=== PATIENT | male | born 1965 | race African-American/Black ===

== ENCOUNTER 2017-04-01 10:55 | Emergency (ER) | payer MEDICAID, OTHER ==
[~2017-04-01] VITALS: Ht 180.3 cm; Wt 69.0 kg
[~2017-04-01 10:55] MED LIST: AMLO2.5T45 PO; GLIP10TA10 PO; LEVVL SUBCUT; LISI-604 PO; PREG75CA PO; Potassium Chloride PO; [UNRECOGNIZED DRUG - OTHER] PO
[2017-04-01 12:08] LABS: BASOPHILS % 0.3 % (0.0-2.0); EOSINOPHILS % 1.1 % (0.0-5.0); HEMATOCRIT. 22.4 % (42.0-52.0); HEMOGLOBIN. 7.5 g/dL (14.0-18.0); MEAN CORPUSCULAR HEMOGLOBIN 29.1 pg (28.0-32.0); MEAN CORPUSCULAR VOLUME 87.1 fL (80.0-94.0); MEAN PLATELET VOLUME 8.2 fl (7.4-10.4); NEUTROPHILS % 75.6 % (40.0-76.0); PLATELET 245 x1000/uL (130-400); RED BLOOD CELL COUNT 2.57 mill/uL (4.7-6.1); RED CELL DISTRIBUTION WIDTH 14.7 % (11.6-14.6)
[2017-04-01 12:17] LABS: INR 1.1; PARTIAL THROMBOPLASTIN TIME 33.1 sec (23.4-31.0); PROTHROMBIN TIME 11.9 sec (9.4-11.6)
[2017-04-01 12:24] LABS: CARBON DIOXIDE 23 mEq/L (21-32); CHLORIDE 109 mEq/L (98-107)
[2017-04-01 16:41] VITALS: BP 132/83
== END 2017-04-01 16:51 | disposition home or self-care (01) ==
LOC: ER 13:41
DX: D64.9 Anemia, unspecified (principal); B19.20 Unspecified viral hepatitis C without hepatic coma; I10 Essential (primary) hypertension; E11.9 Type 2 diabetes mellitus without complications; K58.9 Irritable bowel syndrome, unspecified; Z79.4 Long term (current) use of insulin
CPT/HCPCS: 36415; 80053; 83690; 85025; 85610; 85730; 86850; 86900; 86901; 99284; Z7610

== ENCOUNTER 2017-04-08 08:02 | Inpatient (IN) | payer OTHER ==
[~2017-04-08] VITALS: Ht 180.3 cm; Wt 81.6 kg
[2017-04-08 09:48] LABS: HEMATOCRIT. 22.9 % (42.0-52.0); HEMOGLOBIN. 7.6 g/dL (14.0-18.0); MEAN CORPUSCULAR HEMOGLOBIN 28.5 pg (28.0-32.0); MEAN CORPUSCULAR VOLUME 85.6 fL (80.0-94.0); MEAN PLATELET VOLUME 7.3 fl (7.4-10.4); PLATELET 389 x1000/uL (130-400); RED BLOOD CELL COUNT 2.67 mill/uL (4.7-6.1); RED CELL DISTRIBUTION WIDTH 14.6 % (11.6-14.6)
[2017-04-08 10:00] LABS: CARBON DIOXIDE 25 mEq/L (21-32); CHLORIDE 103 mEq/L (98-107)
[2017-04-08 10:02] LABS: PLATELET ESTIMATE NORMAL; TROPONIN I < 0.02 ng/mL (0.00-0.04)
[2017-04-08] MEDS ORDERED: IOHEXOL-350 100 ML BOTTLE ONE (12:02)
[2017-04-08] MEDS ORDERED: SODIUM CHLORIDE 0.9% 10ML VIAL ONE (12:02)
[2017-04-08 20:00] VITALS: BP 159/96
[2017-04-08] MEDS ORDERED: POTASSIUM CHLORIDE 20MEQ TABLET SR PO NR (21:15)
[2017-04-08] MEDS ORDERED: DEXTROSE 50% WATER 50ML SYRINGE IV PRN ×2 (21:15)
[2017-04-09] VITALS (14 sets, daily range): BP systolic 106–169; BP diastolic 70–99
[2017-04-09] MEDS: INSULIN DETEMIR UD 100 UNITS/ML SYR SUBCUT SCH ×2 (00:49→22:21)
[2017-04-09] MEDS: INSULIN LISPRO 100 UNITS/ML SUBCUT SCH ×4 (07:50→20:22)
[2017-04-09] MEDS: BLOOD SUGAR DIAGNOSTIC STRIP TEST SCH ×4 (07:50→20:22)
[2017-04-09] MEDS ORDERED: VANCOMYCIN 1 G PREMIX 200 ML IV SCH (13:00)
[2017-04-09] MEDS ORDERED: ONDANSETRON HCL 4MG/2ML VIAL IV PRN (13:15)
[2017-04-09] MEDS ORDERED: CLONIDINE 0.1MG TABLET PO PRN (13:15)
[2017-04-09] MEDS: PANTOPRAZOLE SODIUM 40 MG/VIAL IV SCH (13:32)
[2017-04-09 13:38] LABS: BASOPHILS % 0.2 % (0.0-2.0); EOSINOPHILS % 0.3 % (0.0-5.0); HEMATOCRIT. 30.2 % (42.0-52.0); HEMOGLOBIN. 10.2 g/dL (14.0-18.0); LYMPHOCYTES % 10.5 % (20.0-50.0); MEAN CORPUSCULAR HEMOGLOBIN 28.5 pg (28.0-32.0); MEAN CORPUSCULAR VOLUME 84.3 fL (80.0-94.0); MONOCYTES % 6.1 % (2.0-8.0); NEUTROPHILS % 82.9 % (40.0-76.0); PLATELET 406 x1000/uL (130-400); RED BLOOD CELL COUNT 3.58 mill/uL (4.7-6.1); RED CELL DISTRIBUTION WIDTH 14.5 % (11.6-14.6)
[2017-04-09 14:08] LABS: CARBON DIOXIDE 26 mEq/L (21-32); CHLORIDE 104 mEq/L (98-107); TOTAL IRON BINDING CAPACITY 151 ug/dL (250-450)
[2017-04-09 14:29] LABS: FOLIC ACID (FOLATE) SERUM 8.4 ng/mL (>5.38)
[2017-04-09] MEDS ORDERED: VANCOMYCIN 1250MG in DEXTROSE 5% WATER 250ML IV SCH (15:00)
[2017-04-09] MEDS ORDERED: POTASSIUM CHLORIDE 20MEQ TABLET SR PO SCH (15:00)
[2017-04-09 16:32] LABS: BASOPHILS % 0.4 % (0.0-2.0); EOSINOPHILS % 0.3 % (0.0-5.0); HEMATOCRIT. 31.2 % (42.0-52.0); HEMOGLOBIN. 10.4 g/dL (14.0-18.0); LYMPHOCYTES % 10.4 % (20.0-50.0); MEAN CORPUSCULAR VOLUME 84.2 fL (80.0-94.0); MEAN PLATELET VOLUME 7.4 fl (7.4-10.4); MONOCYTES % 6.5 % (2.0-8.0); NEUTROPHILS % 82.4 % (40.0-76.0); PLATELET 423 x1000/uL (130-400); RED BLOOD CELL COUNT 3.71 mill/uL (4.7-6.1); RED CELL DISTRIBUTION WIDTH 14.4 % (11.6-14.6)
[2017-04-09] MEDS: METOCLOPRAMIDE HCL 5MG TABLET PO SCH (17:42)
[2017-04-09] MEDS: AMLODIPINE 2.5MG TABLET PO SCH (20:39)
[2017-04-10] VITALS: BP 145/84
[2017-04-10] MEDS: METOCLOPRAMIDE HCL 5MG TABLET PO SCH ×4 (00:36→17:43)
[2017-04-10] MEDS ORDERED: VANCOMYCIN 750 MG PREMIX 150 ML IV SCH (03:00)
[2017-04-10 04:00] VITALS: BP 131/79
[2017-04-10] MEDS: HYDROCODONE/ACETAMINOPHEN 5/325MG TABLET PO PRN ×2 (05:58→12:02)
[2017-04-10] MEDS: BLOOD SUGAR DIAGNOSTIC STRIP TEST SCH ×4 (06:42→21:28)
[2017-04-10] MEDS: INSULIN LISPRO 100 UNITS/ML SUBCUT SCH ×4 (07:50→21:00)
[2017-04-10 08:00] VITALS: BP 136/79
[2017-04-10] MEDS: PANTOPRAZOLE SODIUM 40 MG/VIAL IV SCH (09:18)
[2017-04-10] MEDS: AMLODIPINE 2.5MG TABLET PO SCH ×2 (09:18→21:28)
[2017-04-10 12:00] VITALS: BP 153/90
[2017-04-10 16:00] VITALS: BP 140/80
[2017-04-10 17:05] LABS: CLARITY URINE CLOUDY (CLEAR); COLOR URINE YELLOW (YELLOW); GLUCOSE URINE NEGATIVE (NEGATIVE); KETONES URINE NEGATIVE (NEGATIVE); LEUKOCYTE ESTERASE URINE NEGATIVE (NEGATIVE); NITRITE URINE NEGATIVE (NEGATIVE); OCCULT BLOOD URINE 2+ (NEGATIVE); PH URINE 5.5 (4.5-8.0); PROTEIN URINE 3+ (NEGATIVE); SPECIFIC GRAVITY URINE 1.026 (1.005-1.030); UROBILINOGEN URINE 0.2 E.U./dL (0.2-1.0)
[2017-04-10] MEDS: VANCOMYCIN 1250MG in DEXTROSE 5% WATER 250ML IV SCH (17:43)
[2017-04-10 20:00] VITALS: BP 169/103
[2017-04-11] VITALS: BP 156/80
[2017-04-11] MEDS: METOCLOPRAMIDE HCL 5MG TABLET PO SCH ×4 (00:54→18:53)
[2017-04-11] MEDS: INSULIN DETEMIR UD 100 UNITS/ML SYR SUBCUT SCH ×2 (01:00→21:57)
[2017-04-11] MEDS: VANCOMYCIN 1250MG in DEXTROSE 5% WATER 250ML IV SCH ×2 (03:38→16:35)
[2017-04-11 04:00] VITALS: BP 142/90
[2017-04-11] MEDS: BLOOD SUGAR DIAGNOSTIC STRIP TEST SCH ×4 (07:20→20:20)
[2017-04-11] MEDS: INSULIN LISPRO 100 UNITS/ML SUBCUT SCH ×4 (07:50→21:57)
[2017-04-11 08:00] VITALS: BP 132/82
[2017-04-11] MEDS: AMLODIPINE 2.5MG TABLET PO SCH ×2 (09:24→20:20)
[2017-04-11] MEDS: PANTOPRAZOLE SODIUM 40 MG/VIAL IV SCH (09:24)
[2017-04-11] MEDS: CARVEDILOL 6.25 MG TABLET PO SCH ×2 (09:24→20:20)
[2017-04-11 12:00] VITALS: BP 133/80
[2017-04-11 14:53] LABS: HEMOGLOBIN 11.8 g/dL (14.0-18.0); MEAN CORPUSCULAR HEMOGLOBIN 28.7 pg (28.0-32.0); MEAN CORPUSCULAR VOLUME 85.1 fL (80.0-94.0); PLATELET 469 x1000/uL (130-400); RED BLOOD CELL COUNT 4.11 mill/uL (4.7-6.1); RED CELL DISTRIBUTION WIDTH 14.2 % (11.6-14.6)
[2017-04-11 16:00] VITALS: BP 114/68
[2017-04-11 20:00] VITALS: BP 115/74
[2017-04-12] VITALS: BP 134/82
[2017-04-12] MEDS: VANCOMYCIN 1250MG in DEXTROSE 5% WATER 250ML IV SCH (02:53)
[2017-04-12] MEDS: METOCLOPRAMIDE HCL 5MG TABLET PO SCH ×4 (02:53→18:00)
[2017-04-12] MEDS: HYDROCODONE/ACETAMINOPHEN 5/325MG TABLET PO PRN (03:13)
[2017-04-12 04:00] VITALS: BP 100/65
[2017-04-12 07:30] LABS: CARBON DIOXIDE 21 mEq/L (21-32); CHLORIDE 103 mEq/L (98-107)
[2017-04-12] MEDS: INSULIN LISPRO 100 UNITS/ML SUBCUT SCH ×3 (07:50→18:22)
[2017-04-12] MEDS: BLOOD SUGAR DIAGNOSTIC STRIP TEST SCH ×3 (07:54→17:57)
[2017-04-12 08:00] VITALS: BP 119/77
[2017-04-12] MEDS: CARVEDILOL 6.25 MG TABLET PO SCH (09:00)
[2017-04-12] MEDS: AMLODIPINE 2.5MG TABLET PO SCH (09:00)
[2017-04-12] MEDS: PANTOPRAZOLE SODIUM 40 MG/VIAL IV SCH (09:00)
[2017-04-12 09:09] LABS: HEMATOCRIT 30.7 % (42.0-52.0); HEMOGLOBIN 10.2 g/dL (14.0-18.0); MEAN CORPUSCULAR HEMOGLOBIN 28.3 pg (28.0-32.0); MEAN CORPUSCULAR VOLUME 85.6 fL (80.0-94.0); PLATELET 387 x1000/uL (130-400); RED BLOOD CELL COUNT 3.59 mill/uL (4.7-6.1); RED CELL DISTRIBUTION WIDTH 14.2 % (11.6-14.6)
[2017-04-12 12:00] VITALS: BP 135/90
[2017-04-12 16:00] VITALS: BP 123/79
[2017-04-12 17:46] VITALS: BP 123/79
[2017-04-13] MEDS ORDERED: VANCOMYCIN 1 G PREMIX 200 ML IV SCH (08:00)
== END 2017-04-12 18:30 | disposition home health service (06) | DRG 720 ==
LOC: ER 08:32 → 6EST 14:17 → ENRESERV 16:06
PROVIDERS: ADMIT Internal Medicine; ATTEND Internal Medicine
PROC: 30233N1 Transfusion of Nonautologous Red Blood Cells into Peripheral Vein, Percutaneous Approach (ICD-10-PCS; principal; 2017-04-09)
PROC: 02HV33Z Insertion of Infusion Device into Superior Vena Cava, Percutaneous Approach (ICD-10-PCS; 2017-04-12)
PROC: B5181ZA Fluoroscopy of Superior Vena Cava using Low Osmolar Contrast, Guidance (ICD-10-PCS; 2017-04-12)
PROC: B548ZZA Ultrasonography of Superior Vena Cava, Guidance (ICD-10-PCS; 2017-04-12)
DX: A41.9 Sepsis, unspecified organism (principal); N17.0 Acute kidney failure with tubular necrosis; E43 Unspecified severe protein-calorie malnutrition; I42.9 Cardiomyopathy, unspecified; E11.42 Type 2 diabetes mellitus with diabetic polyneuropathy; I50.9 Heart failure, unspecified; I11.0 Hypertensive heart disease with heart failure; E88.09 Other disorders of plasma-protein metabolism, not elsewhere classified; K31.84 Gastroparesis; E11.51 Type 2 diabetes mellitus with diabetic peripheral angiopathy without gangrene; E87.6 Hypokalemia; E11.621 Type 2 diabetes mellitus with foot ulcer; L97.529 Non-pressure chronic ulcer of other part of left foot with unspecified severity; D47.3 Essential (hemorrhagic) thrombocythemia; D63.8 Anemia in other chronic diseases classified elsewhere; E11.69 Type 2 diabetes mellitus with other specified complication; D50.9 Iron deficiency anemia, unspecified; M86.8X7 Other osteomyelitis, ankle and foot; K21.9 Gastro-esophageal reflux disease without esophagitis; B18.2 Chronic viral hepatitis C; E11.43 Type 2 diabetes mellitus with diabetic autonomic (poly)neuropathy; E78.00 Pure hypercholesterolemia, unspecified; E78.5 Hyperlipidemia, unspecified; W19.XXXA Unspecified fall, initial encounter; K59.1 Functional diarrhea; Y93.89 Activity, other specified; Y92.098 Other place in other non-institutional residence as the place of occurrence of the external cause; Y99.8 Other external cause status; Z79.4 Long term (current) use of insulin; Z87.442 Personal history of urinary calculi; Z89.421 Acquired absence of other right toe(s); Z90.49 Acquired absence of other specified parts of digestive tract; Z79.899 Other long term (current) drug therapy; Z91.19 Patient's noncompliance with other medical treatment and regimen; Z86.19 Personal history of other infectious and parasitic diseases
CPT/HCPCS: 36415; 36569; 70551; 71275; 73721; 76937; 77001; 80048; 80053; 80202; 81001; 82270; 82607; 82728; 82746; 82962; 83036; 83540; 83550; 84484; 85025; 85027; 86850; 86900; 86920; 93005; 97022; 97162; 99285; A4216; C1725; C9113; J1815; J2405; J3370; J7040; J7060; J8597; P9016; Q9967

== ENCOUNTER 2017-04-21 12:51 | Inpatient (IN) | payer OTHER ==
[~2017-04-21] VITALS: Ht 180.3 cm; Wt 68.0 kg
[2017-04-21 16:04] LABS: CHLORIDE 106 mEq/L (98-107); INR 1.2; PROTHROMBIN TIME 12.4 sec (9.4-11.6)
[2017-04-21 16:05] LABS: BASOPHILS % 0.2 % (0.0-2.0); EOSINOPHILS % 0.2 % (0.0-5.0); HEMATOCRIT. 26.4 % (42.0-52.0); HEMOGLOBIN. 8.6 g/dL (14.0-18.0); LYMPHOCYTES % 7.3 % (20.0-50.0); MEAN CORPUSCULAR VOLUME 86.3 fL (80.0-94.0); MEAN PLATELET VOLUME 7.6 fl (7.4-10.4); MONOCYTES % 3.9 % (2.0-8.0); NEUTROPHILS % 88.4 % (40.0-76.0); PLATELET 281 x1000/uL (130-400); RED BLOOD CELL COUNT 3.06 mill/uL (4.7-6.1); RED CELL DISTRIBUTION WIDTH 14.3 % (11.6-14.6)
[2017-04-21 16:12] LABS: CARBON DIOXIDE 19 mEq/L (21-32)
[2017-04-21] MEDS ORDERED: SODIUM CHLORIDE 0.9% 1,000 ML IV ONE (19:45)
[2017-04-21] MEDS ORDERED: ACETAMINOPHEN 650MG/20.3ML UDC PO ONE (19:45)
[2017-04-21 23:40] VITALS: BP 127/71
[2017-04-22] VITALS: BP 127/71
[2017-04-22] MEDS ORDERED: SODIUM CHLORIDE 0.9% 1,000 ML IV SCH (00:45)
[2017-04-22] MEDS ORDERED: DEXTROSE 50% WATER 50ML SYRINGE IV PRN (02:45)
[2017-04-22 04:00] VITALS: BP 109/64
[2017-04-22] MEDS: SODIUM CHLORIDE 0.9% 1,000 ML IV SCH ×2 (04:26→16:25)
[2017-04-22] MEDS: MORPHINE SULFATE 4 MG/ML CPJ (NOT FOR IM USE) IV PRN ×3 (04:27→21:49)
[2017-04-22] MEDS: BLOOD SUGAR DIAGNOSTIC STRIP TEST SCH ×4 (06:32→21:11)
[2017-04-22] MEDS: INSULIN LISPRO 100 UNITS/ML SUBCUT SCH ×4 (06:32→21:00)
[2017-04-22 07:15] LABS: BASOPHILS % 0.4 % (0.0-2.0); EOSINOPHILS % 1.4 % (0.0-5.0); HEMATOCRIT. 25.5 % (42.0-52.0); HEMOGLOBIN. 8.4 g/dL (14.0-18.0); LYMPHOCYTES % 13.9 % (20.0-50.0); MEAN CORPUSCULAR HEMOGLOBIN 28.2 pg (28.0-32.0); MEAN CORPUSCULAR VOLUME 85.6 fL (80.0-94.0); MEAN PLATELET VOLUME 7.5 fl (7.4-10.4); MONOCYTES % 5.1 % (2.0-8.0); NEUTROPHILS % 79.2 % (40.0-76.0); PLATELET 248 x1000/uL (130-400); RED BLOOD CELL COUNT 2.99 mill/uL (4.7-6.1); RED CELL DISTRIBUTION WIDTH 14.1 % (11.6-14.6)
[2017-04-22 08:42] VITALS: BP 115/78
[2017-04-22] MEDS: AMLODIPINE 5MG TABLET PO SCH (08:45)
[2017-04-22 12:02] LABS: CARBON DIOXIDE 20 mEq/L (21-32); CHLORIDE 111 mEq/L (98-107)
[2017-04-22 20:00] VITALS: BP 108/66
[2017-04-22] MEDS ORDERED: VANCOMYCIN 1250MG in DEXTROSE 5% WATER 250ML IV SCH (20:30)
[2017-04-22 23:12] VITALS: BP 128/71
[2017-04-22 23:27] VITALS: BP 147/87
[2017-04-23] VITALS (8 sets, daily range): BP systolic 103–154; BP diastolic 54–89
[2017-04-23] MEDS: BLOOD SUGAR DIAGNOSTIC STRIP TEST SCH ×4 (06:35→22:08)
[2017-04-23] MEDS ORDERED: LIDOCAINE HCL 1% 20ML VIAL (Pyxis) INJ ONE (07:36)
[2017-04-23] MEDS ORDERED: SODIUM BICARBONATE 4% (2.4MEQ) 5ML VIAL IV ONE (07:36)
[2017-04-23 08:02] LABS: BASOPHILS % 0.4 % (0.0-2.0); EOSINOPHILS % 1.1 % (0.0-5.0); HEMATOCRIT. 28.7 % (42.0-52.0); HEMOGLOBIN. 9.8 g/dL (14.0-18.0); LYMPHOCYTES % 12.5 % (20.0-50.0); MEAN CORPUSCULAR HEMOGLOBIN 29.2 pg (28.0-32.0); MEAN CORPUSCULAR VOLUME 85.4 fL (80.0-94.0); MEAN PLATELET VOLUME 7.5 fl (7.4-10.4); MONOCYTES % 5.5 % (2.0-8.0); NEUTROPHILS % 80.5 % (40.0-76.0); PLATELET 292 x1000/uL (130-400); RED BLOOD CELL COUNT 3.36 mill/uL (4.7-6.1); RED CELL DISTRIBUTION WIDTH 13.9 % (11.6-14.6)
[2017-04-23] MEDS ORDERED: HEPARIN 100 UNITS/1 ML VIAL IVF PRN (08:45)
[2017-04-23] MEDS: AMLODIPINE 5MG TABLET PO SCH (09:48)
[2017-04-23] MEDS: INSULIN LISPRO 100 UNITS/ML SUBCUT SCH ×4 (09:49→22:23)
[2017-04-23] MEDS: SODIUM CHLORIDE 0.9% 1,000 ML IV SCH ×3 (10:15→20:15)
[2017-04-23] MEDS: MORPHINE SULFATE 4 MG/ML CPJ (NOT FOR IM USE) IV PRN (10:25)
[2017-04-23] MEDS ORDERED: VANCOMYCIN 1 G PREMIX 200 ML IV SCH (12:00)
[2017-04-23 14:48] LABS: CARBON DIOXIDE 19 mEq/L (21-32); CHLORIDE 111 mEq/L (98-107)
[2017-04-23] MEDS: VANCOMYCIN 1250MG in DEXTROSE 5% WATER 250ML IV SCH (16:31)
[2017-04-24] VITALS: BP 134/82
[2017-04-24 04:00] VITALS: BP 148/60
[2017-04-24] MEDS: SODIUM CHLORIDE 0.9% 1,000 ML IV SCH ×2 (06:01→16:15)
[2017-04-24] MEDS: BLOOD SUGAR DIAGNOSTIC STRIP TEST SCH ×3 (07:10→16:44)
[2017-04-24] MEDS: INSULIN LISPRO 100 UNITS/ML SUBCUT SCH ×3 (07:50→17:31)
[2017-04-24 08:00] VITALS: BP 131/82
[2017-04-24] MEDS: AMLODIPINE 5MG TABLET PO SCH (10:34)
[2017-04-24] MEDS: MORPHINE SULFATE 4 MG/ML CPJ (NOT FOR IM USE) IV PRN (11:55)
[2017-04-24 12:00] VITALS: BP 138/88
[2017-04-24 13:07] LABS: *AMPHETAMINES SCREEN URINE NEGATIVE (NEGATIVE); *BARBITURATES SCREEN URINE NEGATIVE (NEGATIVE); *BENZODIAZEPINES SCREEN URINE NEGATIVE (NEGATIVE); *COCAINE SCREEN URINE NEGATIVE (NEGATIVE); CANNABINOID URINE SCREEN NEGATIVE (NEGATIVE); METHADONE URINE SCREEN NEGATIVE (NEGATIVE); OPIATES URINE SCREEN PRESUMTIVE POSITIVE (NEGATIVE); PHENCYCLIDINE URINE SCREEN NEGATIVE (NEGATIVE)
[2017-04-24 16:00] VITALS: BP 145/93
[2017-04-24] MEDS: VANCOMYCIN 1250MG in DEXTROSE 5% WATER 250ML IV SCH (16:44)
[2017-04-24 17:28] VITALS: BP 145/93
== END 2017-04-24 17:54 | disposition home health service (06) | DRG 720 ==
LOC: ER 12:51 → 6EST 19:43 → ENRESERV 20:01
PROVIDERS: ADMIT Family Medicine; ATTEND Family Medicine
PROC: 30233N1 Transfusion of Nonautologous Red Blood Cells into Peripheral Vein, Percutaneous Approach (ICD-10-PCS; 2017-04-22)
PROC: 02HV33Z Insertion of Infusion Device into Superior Vena Cava, Percutaneous Approach (ICD-10-PCS; principal; 2017-04-23)
PROC: B5181ZA Fluoroscopy of Superior Vena Cava using Low Osmolar Contrast, Guidance (ICD-10-PCS; 2017-04-23)
PROC: B548ZZA Ultrasonography of Superior Vena Cava, Guidance (ICD-10-PCS; 2017-04-23)
DX: A41.9 Sepsis, unspecified organism (principal); N17.0 Acute kidney failure with tubular necrosis; E43 Unspecified severe protein-calorie malnutrition; E11.621 Type 2 diabetes mellitus with foot ulcer; K75.9 Inflammatory liver disease, unspecified; T85.618A Breakdown (mechanical) of other specified internal prosthetic devices, implants and grafts, initial encounter; L97.529 Non-pressure chronic ulcer of other part of left foot with unspecified severity; I10 Essential (primary) hypertension; Z68.20 Body mass index [BMI] 20.0-20.9, adult; Z79.4 Long term (current) use of insulin; Z79.899 Other long term (current) drug therapy; Z90.49 Acquired absence of other specified parts of digestive tract; Z89.431 Acquired absence of right foot; Y83.9 Surgical procedure, unspecified as the cause of abnormal reaction of the patient, or of later complication, without mention of misadventure at the time of the procedure; Y92.89 Other specified places as the place of occurrence of the external cause
CPT/HCPCS: 36415; 36569; 71010; 73630; 76770; 76937; 77001; 80053; 80202; 80305; 82962; 85025; 85610; 85651; 86140; 86850; 86900; 86920; 87040; 93005; 96360; 96361; 99285; C1725; J1815; J2270; J3370; J3490; J7030; J7060; P9016

== ENCOUNTER 2017-05-18 07:18 | Inpatient (IN) | payer OTHER ==
[~2017-05-18] VITALS: Ht 182.9 cm; Wt 65.3 kg
[2017-05-18] MEDS ORDERED: SODIUM CHLORIDE 0.9% 1000ML BAG (SEPSIS BOLUS) IV ONE (08:15)
[2017-05-18] MEDS ORDERED: PIPERACILLIN/TAZ 3.375G PREMIX 50 ML IV ONE (08:15)
[2017-05-18 08:52] LABS: BASOPHILS % 0.2 % (0.0-2.0); EOSINOPHILS % 0.3 % (0.0-5.0); HEMATOCRIT. 21.9 % (42.0-52.0); HEMOGLOBIN. 7.6 g/dL (14.0-18.0); MEAN CORPUSCULAR HEMOGLOBIN 29.4 pg (28.0-32.0); MEAN CORPUSCULAR VOLUME 84.7 fL (80.0-94.0); MEAN PLATELET VOLUME 7.6 fl (7.4-10.4); MONOCYTES % 8.9 % (2.0-8.0); NEUTROPHILS % 77.6 % (40.0-76.0); PLATELET 247 x1000/uL (130-400); RED BLOOD CELL COUNT 2.58 mill/uL (4.7-6.1); RED CELL DISTRIBUTION WIDTH 14.2 % (11.6-14.6)
[2017-05-18 09:01] LABS: INR 1.2; PROTHROMBIN TIME 12.3 sec (9.4-11.6)
[2017-05-18 09:07] LABS: CARBON DIOXIDE 24 mEq/L (21-32); CHLORIDE 107 mEq/L (98-107)
[2017-05-18] MEDS ORDERED: POTASSIUM CHLORIDE 20MEQ TABLET SR PO NR (09:15)
[2017-05-18 12:00] VITALS: BP 141/88
[2017-05-18 12:30] VITALS: BP 141/88
[2017-05-18] MEDS ORDERED: ACETAMINOPHEN 325MG TABLET PO PRN (12:45)
[2017-05-18] MEDS ORDERED: VANCOMYCIN 1 G PREMIX 200 ML IV SCH (12:45)
[2017-05-18] MEDS ORDERED: IPRATROPIUM/ALBUTEROL 0.5-3(2.5)MG/3ML NEB INH PRN (12:45)
[2017-05-18] MEDS ORDERED: DEXTROSE 50% WATER 50ML SYRINGE IV PRN (12:45)
[2017-05-18] MEDS ORDERED: ONDANSETRON HCL 4MG/2ML VIAL IV PRN (12:45)
[2017-05-18] MEDS ORDERED: CLONIDINE 0.1MG TABLET PO PRN (12:45)
[2017-05-18] MEDS ORDERED: DIPHENHYDRAMINE 50MG/ML VIAL IV PRN (12:45)
[2017-05-18] MEDS ORDERED: AMLODIPINE 2.5MG TABLET PO SCH (13:00)
[2017-05-18] MEDS: HYDROCODONE/ACETAMINOPHEN 5/325MG TABLET PO PRN ×2 (13:18→17:49)
[2017-05-18] MEDS ORDERED: INSULIN DETEMIR UD 100 UNITS/ML SYR SUBCUT SCH (15:00)
[2017-05-18] MEDS: PIPERACILLIN/TAZ 3.375G PREMIX 50 ML IV SCH ×2 (15:17→22:26)
[2017-05-18 16:00] VITALS: BP 147/88
[2017-05-18] MEDS: BLOOD SUGAR DIAGNOSTIC STRIP TEST SCH ×2 (17:04→21:18)
[2017-05-18] MEDS: GLIPIZIDE 10MG TABLET PO SCH (17:46)
[2017-05-18] MEDS: PREGABALIN 75MG CAPSULE PO SCH (17:46)
[2017-05-18] MEDS: INSULIN LISPRO 100 UNITS/ML SUBCUT SCH ×2 (17:50→21:00)
[2017-05-18] MEDS: LISINOPRIL 20MG TABLET PO SCH (18:18)
[2017-05-18 20:00] VITALS: BP 115/68
[2017-05-19] VITALS (7 sets, daily range): BP systolic 65–157; BP diastolic 39–91
[2017-05-19] MEDS: HYDROCODONE/ACETAMINOPHEN 5/325MG TABLET PO PRN ×3 (05:31→20:36)
[2017-05-19] MEDS: PIPERACILLIN/TAZ 3.375G PREMIX 50 ML IV SCH (05:32)
[2017-05-19] MEDS: LISINOPRIL 20MG TABLET PO SCH ×2 (05:32→18:51)
[2017-05-19 05:44] LABS: BASOPHILS % 0.2 % (0.0-2.0); EOSINOPHILS % 0.1 % (0.0-5.0); HEMATOCRIT. 27.3 % (42.0-52.0); LYMPHOCYTES % 7.3 % (20.0-50.0); MEAN CORPUSCULAR HEMOGLOBIN 27.8 pg (28.0-32.0); MEAN PLATELET VOLUME 7.3 fl (7.4-10.4); MONOCYTES % 5.9 % (2.0-8.0); NEUTROPHILS % 86.5 % (40.0-76.0); PLATELET 263 x1000/uL (130-400); RED BLOOD CELL COUNT 3.25 mill/uL (4.7-6.1); RED CELL DISTRIBUTION WIDTH 14.3 % (11.6-14.6)
[2017-05-19] MEDS: BLOOD SUGAR DIAGNOSTIC STRIP TEST SCH ×4 (05:56→20:41)
[2017-05-19 06:15] LABS: CLARITY URINE CLEAR (CLEAR); COLOR URINE YELLOW (YELLOW); GLUCOSE URINE NEGATIVE (NEGATIVE); KETONES URINE NEGATIVE (NEGATIVE); LEUKOCYTE ESTERASE URINE NEGATIVE (NEGATIVE); NITRITE URINE NEGATIVE (NEGATIVE); OCCULT BLOOD URINE 2+ (NEGATIVE); PROTEIN URINE 2+ (NEGATIVE); UROBILINOGEN URINE 0.2 E.U./dL (0.2-1.0)
[2017-05-19 06:33] LABS: CARBON DIOXIDE 23 mEq/L (21-32); CHLORIDE 108 mEq/L (98-107); HDL CHOLESTEROL 42 mg/dL (40-59); LDL CHOLESTEROL 38 mg/dL (5-100)
[2017-05-19] MEDS: INSULIN LISPRO 100 UNITS/ML SUBCUT SCH ×4 (06:44→20:41)
[2017-05-19] MEDS: GLIPIZIDE 10MG TABLET PO SCH ×2 (07:26→16:45)
[2017-05-19] MEDS ORDERED: CEFTRIAXONE 2 G in DEXTROSE 5% WATER 50 ML IV SCH (08:00)
[2017-05-19] MEDS: PREGABALIN 75MG CAPSULE PO SCH ×2 (08:48→18:51)
[2017-05-19] MEDS ORDERED: ELUXADOLINE PO SCH (09:00)
[2017-05-19] MEDS ORDERED: AMLODIPINE 5MG TABLET PO NR (09:00)
[2017-05-19] MEDS ORDERED: POTASSIUM CHLORIDE 20MEQ TABLET SR PO NR (09:00)
[2017-05-19] MEDS ORDERED: SODIUM CHLORIDE 0.9% 1,000 ML IV SCH (09:15)
[2017-05-19] MEDS: LINEZOLID 600 MG PREMIX 300 ML IV SCH ×2 (09:33→20:36)
[2017-05-19] MEDS ORDERED: INSULIN DETEMIR UD 100 UNITS/ML SYR SUBCUT SCH (10:00)
[2017-05-19] MEDS: INSULIN DETEMIR UD 100 UNITS/ML SYR SUBCUT SCH ×2 (12:48→20:42)
[2017-05-19] MEDS ORDERED: DEXTROSE 50% WATER 50ML SYRINGE IV ONE ×2 (18:16→18:42)
[2017-05-20 00:30] VITALS: BP 95/56
[2017-05-20 00:59] VITALS: BP 95/56
[2017-05-20 04:25] VITALS: BP 120/84
[2017-05-20] MEDS: LISINOPRIL 20MG TABLET PO SCH (05:52)
[2017-05-20] MEDS: BLOOD SUGAR DIAGNOSTIC STRIP TEST SCH (06:02)
[2017-05-20] MEDS: INSULIN LISPRO 100 UNITS/ML SUBCUT SCH (06:02)
[2017-05-20 06:20] LABS: BASOPHILS % 0.4 % (0.0-2.0); EOSINOPHILS % 1.2 % (0.0-5.0); HEMATOCRIT. 23.2 % (42.0-52.0); LYMPHOCYTES % 13.5 % (20.0-50.0); MEAN CORPUSCULAR HEMOGLOBIN 28.8 pg (28.0-32.0); MEAN CORPUSCULAR VOLUME 83.9 fL (80.0-94.0); MEAN PLATELET VOLUME 7.5 fl (7.4-10.4); MONOCYTES % 6.3 % (2.0-8.0); NEUTROPHILS % 78.6 % (40.0-76.0); PLATELET 252 x1000/uL (130-400); RED BLOOD CELL COUNT 2.77 mill/uL (4.7-6.1); RED CELL DISTRIBUTION WIDTH 14.2 % (11.6-14.6)
[2017-05-20] MEDS: GLIPIZIDE 10MG TABLET PO SCH (06:33)
[2017-05-20 07:17] LABS: CHLORIDE 105 mEq/L (98-107)
[2017-05-20] MEDS ORDERED: GENTAMICIN SULF 40MG/ML 2ML VIAL ONE (07:17)
[2017-05-20] MEDS ORDERED: BACITRACIN 50,000 UNITS/VIAL ONE (07:17)
[2017-05-20] MEDS ORDERED: NORMAL SALINE 0.9% 10 ML SYR ONE (07:17)
[2017-05-20] MEDS ORDERED: BUPIVACAINE HCL/PF 0.5% (5MG/ML) 10ML ONE (07:18)
[2017-05-20] MEDS ORDERED: LIDOCAINE HCL 1% 20ML VIAL (Pyxis) INJ ONE (07:18)
[2017-05-20 07:33] LABS: CARBON DIOXIDE 22 mEq/L (21-32); PHOSPHORUS 1.6 mg/dL (2.5-4.9)
[2017-05-20] MEDS ORDERED: AMLODIPINE 10MG TABLET PO SCH (09:00)
[2017-05-23 09:08] LABS: COMPLEMENT C3 112 mg/dL (82-167)
== END 2017-05-20 07:30 | disposition short-term general hospital (02) | DRG 383 ==
LOC: ER 07:18 → 5WST 08:14 → EDBEDREQ 08:18 → EDBEDREQTM 08:18 → ENRESERV 08:41
PROVIDERS: ADMIT Internal Medicine; ATTEND Internal Medicine
DX: L03.116 Cellulitis of left lower limb (principal); N17.0 Acute kidney failure with tubular necrosis; E43 Unspecified severe protein-calorie malnutrition; K31.84 Gastroparesis; I50.9 Heart failure, unspecified; I13.0 Hypertensive heart and chronic kidney disease with heart failure and stage 1 through stage 4 chronic kidney disease, or unspecified chronic kidney disease; E11.43 Type 2 diabetes mellitus with diabetic autonomic (poly)neuropathy; E11.22 Type 2 diabetes mellitus with diabetic chronic kidney disease; M86.8X7 Other osteomyelitis, ankle and foot; D64.9 Anemia, unspecified; L02.416 Cutaneous abscess of left lower limb; N18.3 Chronic kidney disease, stage 3 (moderate); E11.621 Type 2 diabetes mellitus with foot ulcer; E11.69 Type 2 diabetes mellitus with other specified complication; E78.00 Pure hypercholesterolemia, unspecified; E78.5 Hyperlipidemia, unspecified; E87.6 Hypokalemia; K29.70 Gastritis, unspecified, without bleeding; L97.529 Non-pressure chronic ulcer of other part of left foot with unspecified severity; Z60.2 Problems related to living alone; E11.649 Type 2 diabetes mellitus with hypoglycemia without coma; Z82.49 Family history of ischemic heart disease and other diseases of the circulatory system; Z83.3 Family history of diabetes mellitus; Z89.421 Acquired absence of other right toe(s); Z90.49 Acquired absence of other specified parts of digestive tract; Z79.4 Long term (current) use of insulin; Z68.1 Body mass index [BMI] 19.9 or less, adult
CPT/HCPCS: 36415; 71010; 73721; 80048; 80053; 80061; 81001; 82270; 82570; 82962; 83036; 83605; 83735; 84100; 84156; 85025; 85610; 86160; 86850; 86900; 87040; 87070; 87077; 87086; 87186; 87205; 93005; 96365; 99291; A4216; J0696; J1580; J1815; J2020; J2543; J3490; J7030; J7050; J7060

== ENCOUNTER 2018-09-12 08:41 | Emergency (ER) | payer OTHER ==
[~2018-09-12] VITALS: Ht 175.3 cm; Wt 70.0 kg
[~2018-09-12 08:41] MED LIST changes: +GABA-529 MT; +OMEP20CA10 MT
[2018-09-12] MEDS ORDERED: SODIUM CHLORIDE 0.9% 1,000 ML IV ONE (09:18)
[2018-09-12] MEDS ORDERED: ONDANSETRON HCL 4MG/2ML INJ IV STA (09:18)
[2018-09-12 09:44] LABS: BASOPHILS % 0.6 % (0.0-2.0); EOSINOPHILS % 0.8 % (0.0-5.0); HEMOGLOBIN. 14.9 g/dL (14.0-18.0); LYMPHOCYTES % 17.3 % (20.0-50.0); MEAN CORPUSCULAR HEMOGLOBIN 30.7 pg (28.0-32.0); MEAN CORPUSCULAR VOLUME 90.9 fL (80.0-94.0); MEAN PLATELET VOLUME 7.2 fl (7.4-10.4); MONOCYTES % 5.9 % (2.0-8.0); NEUTROPHILS % 75.4 % (40.0-76.0); PLATELET 349 x1000/uL (130-400); RED BLOOD CELL COUNT 4.84 mill/uL (4.7-6.1); RED CELL DISTRIBUTION WIDTH 13.6 % (11.6-14.6)
[2018-09-12 09:52] LABS: CHLORIDE 99 mEq/L (98-107)
[2018-09-12 13:20] VITALS: BP 156/93
== END 2018-09-12 14:05 | disposition home or self-care (01) ==
LOC: ER 08:41
DX: E87.6 Hypokalemia (principal); R19.7 Diarrhea, unspecified; K29.70 Gastritis, unspecified, without bleeding; I11.0 Hypertensive heart disease with heart failure; I50.9 Heart failure, unspecified
CPT/HCPCS: 36415; 71045; 80053; 83880; 84484; 85025; 93005; 96374; 99284; J2405; J7030

== ENCOUNTER 2018-09-21 11:22 | Inpatient (IN) | payer OTHER ==
[~2018-09-21] VITALS: Ht 180.3 cm; Wt 57.2 kg
[2018-09-21] MEDS ORDERED: ONDANSETRON HCL 4MG/2ML INJ IV STA (12:00)
[2018-09-21] MEDS ORDERED: MORPHINE SULFATE 4 MG/ML CPJ (NOT FOR IM USE) IV STA (12:00)
[2018-09-21] MEDS ORDERED: SODIUM CHLORIDE 0.9% 1,000 ML IV ONE (12:00)
[2018-09-21 12:32] LABS: BASOPHILS % 0.6 % (0.0-2.0); EOSINOPHILS % 0.6 % (0.0-5.0); HEMATOCRIT. 42.1 % (42.0-52.0); HEMOGLOBIN. 14.6 g/dL (14.0-18.0); LYMPHOCYTES % 20.5 % (20.0-50.0); MEAN CORPUSCULAR HEMOGLOBIN 30.9 pg (28.0-32.0); MEAN CORPUSCULAR VOLUME 89.1 fL (80.0-94.0); MEAN PLATELET VOLUME 7.8 fl (7.4-10.4); MONOCYTES % 8.4 % (2.0-8.0); NEUTROPHILS % 69.9 % (40.0-76.0); PLATELET 250 x1000/uL (130-400); RED BLOOD CELL COUNT 4.73 mill/uL (4.7-6.1); RED CELL DISTRIBUTION WIDTH 13.2 % (11.6-14.6)
[2018-09-21 12:35] LABS: CHLORIDE 96 mEq/L (98-107)
[2018-09-21] MEDS ORDERED: KCL 20MEQ/100ML PREMIX 100 ML IV ONE (13:00)
[2018-09-21] MEDS ORDERED: KCL 20MEQ/100ML PREMIX 100 ML IV SCH (13:15)
[2018-09-21] MEDS ORDERED: PANTOPRAZOLE SODIUM 40 MG/VIAL IV ONE (14:15)
[2018-09-21] MEDS ORDERED: ONDANSETRON HCL 4MG/2ML INJ IV ONE (14:15)
[2018-09-21 18:32] LABS: CLARITY URINE TURBID (CLEAR); COLOR URINE YELLOW (YELLOW); KETONES URINE 1+ (NEGATIVE); LEUKOCYTE ESTERASE URINE NEGATIVE (NEGATIVE); NITRITE URINE NEGATIVE (NEGATIVE); OCCULT BLOOD URINE TRACE (NEGATIVE); PROTEIN URINE 3+ (NEGATIVE); SPECIFIC GRAVITY URINE 1.027 (1.005-1.030)
[2018-09-21] MEDS ORDERED: LORAZEPAM 2MG/ML CPJ IV PRN (20:15)
[2018-09-21] MEDS ORDERED: IPRATROPIUM/ALBUTEROL 0.5-3(2.5)MG/3ML NEB INH PRN (20:15)
[2018-09-21] MEDS ORDERED: ACETAMINOPHEN 325MG TABLET PO PRN (20:15)
[2018-09-21] MEDS ORDERED: CLONIDINE 0.1MG TABLET PO PRN (20:15)
[2018-09-21] MEDS ORDERED: DEXTROSE 50% WATER 50ML SYRINGE IV PRN (20:30)
[2018-09-21] MEDS: HYDROCODONE/ACETAMINOPHEN 5/325MG TABLET PO PRN (20:40)
[2018-09-21] MEDS: ONDANSETRON HCL 4MG/2ML INJ IV PRN (20:41)
[2018-09-21 23:10] VITALS: BP 131/81
[2018-09-21] MEDS: LISINOPRIL 20MG TABLET PO SCH (23:30)
[2018-09-21] MEDS: INSULIN LISPRO 100 UNITS/ML SUBCUT SCH (23:30)
[2018-09-21] MEDS: BLOOD SUGAR DIAGNOSTIC STRIP TEST SCH (23:30)
[2018-09-22] VITALS (7 sets, daily range): BP systolic 107–134; BP diastolic 65–88
[2018-09-22] MEDS ORDERED: POTASSIUM CHLORIDE 20MEQ TABLET SR PO NR (01:00)
[2018-09-22] MEDS: SODIUM CHLORIDE 0.9% 1,000 ML IV SCH ×2 (01:50→16:02)
[2018-09-22] MEDS: HYDROCODONE/ACETAMINOPHEN 5/325MG TABLET PO PRN (06:59)
[2018-09-22] MEDS: BLOOD SUGAR DIAGNOSTIC STRIP TEST SCH ×4 (06:59→21:24)
[2018-09-22] MEDS: INSULIN LISPRO 100 UNITS/ML SUBCUT SCH ×4 (07:04→21:00)
[2018-09-22 07:07] LABS: BASOPHILS % 0.4 % (0.0-2.0); EOSINOPHILS % 1.3 % (0.0-5.0); HEMATOCRIT. 33.2 % (42.0-52.0); HEMOGLOBIN. 11.5 g/dL (14.0-18.0); LYMPHOCYTES % 22.5 % (20.0-50.0); MEAN CORPUSCULAR HEMOGLOBIN 30.8 pg (28.0-32.0); MEAN CORPUSCULAR VOLUME 89.4 fL (80.0-94.0); MEAN PLATELET VOLUME 8.1 fl (7.4-10.4); MONOCYTES % 9.9 % (2.0-8.0); NEUTROPHILS % 65.9 % (40.0-76.0); PLATELET 222 x1000/uL (130-400); RED BLOOD CELL COUNT 3.72 mill/uL (4.7-6.1); RED CELL DISTRIBUTION WIDTH 13.1 % (11.6-14.6)
[2018-09-22 07:17] LABS: CHLORIDE 102 mEq/L (98-107)
[2018-09-22] MEDS ORDERED: POTASSIUM CHLORIDE 20MEQ TABLET SR PO SCH (08:15)
[2018-09-22] MEDS: LISINOPRIL 20MG TABLET PO SCH ×2 (09:00→21:00)
[2018-09-22] MEDS: AMLODIPINE 2.5MG TABLET PO SCH (09:00)
[2018-09-22] MEDS: ONDANSETRON HCL 4MG/2ML INJ IV PRN (11:14)
[2018-09-22] MEDS ORDERED: DIAZ5TAB4 PO (12:45)
[2018-09-22] MEDS ORDERED: FERR325T6 PO (12:45)
[2018-09-22] MEDS ORDERED: TRAM50TA3 PO (12:45)
[2018-09-22] MEDS ORDERED: DICY20TA11 PO (12:45)
[2018-09-22] MEDS ORDERED: POTASSIUM CHLORIDE INJ 40 MEQ in DEXT 5% WATER 250 ML IV NR (16:00)
[2018-09-22 16:01] LABS: *AMPHETAMINES SCREEN URINE NEGATIVE (NEGATIVE)
[2018-09-22 16:02] LABS: *BARBITURATES SCREEN URINE NEGATIVE (NEGATIVE); *BENZODIAZEPINES SCREEN URINE PRESUMTIVE POSITIVE (NEGATIVE); *COCAINE SCREEN URINE NEGATIVE (NEGATIVE); METHADONE URINE SCREEN NEGATIVE (NEGATIVE); OPIATES URINE SCREEN PRESUMTIVE POSITIVE (NEGATIVE)
[2018-09-22 16:03] LABS: CANNABINOID URINE SCREEN PRESUMTIVE POSITIVE (NEGATIVE); PHENCYCLIDINE URINE SCREEN NEGATIVE (NEGATIVE)
[2018-09-22 16:55] LABS: HEMATOCRIT 31.9 % (42.0-52.0); HEMOGLOBIN 11.2 g/dL (14.0-18.0); MEAN CORPUSCULAR HEMOGLOBIN 31.1 pg (28.0-32.0); MEAN CORPUSCULAR VOLUME 88.8 fL (80.0-94.0); PLATELET 207 x1000/uL (130-400); RED BLOOD CELL COUNT 3.59 mill/uL (4.7-6.1)
[2018-09-22 17:11] LABS: AMYLASE 76 IU/L (25-115)
[2018-09-22] MEDS: METOCLOPRAMIDE HCL 10MG/2ML VIAL IV SCH (17:47)
[2018-09-22] MEDS: INSULIN GLARGINE UD 100 UNITS/ML SYR SUBCUT SCH (22:03)
[2018-09-22] MEDS: TRAZODONE HCL 50MG TABLET PO SCH (22:03)
[2018-09-22 23:39] LABS: HEMATOCRIT 34.5 % (42.0-52.0); HEMOGLOBIN 11.8 g/dL (14.0-18.0); MEAN CORPUSCULAR HEMOGLOBIN 30.8 pg (28.0-32.0); MEAN CORPUSCULAR VOLUME 89.9 fL (80.0-94.0); PLATELET 220 x1000/uL (130-400); RED BLOOD CELL COUNT 3.84 mill/uL (4.7-6.1)
[2018-09-23] VITALS: BP 116/72
[2018-09-23] MEDS: SODIUM CHLORIDE 0.9% 1,000 ML IV SCH ×2 (02:10→23:25)
[2018-09-23 04:00] VITALS: BP 102/64
[2018-09-23] MEDS: METOCLOPRAMIDE HCL 10MG/2ML VIAL IV SCH ×4 (06:38→17:28)
[2018-09-23] MEDS: BLOOD SUGAR DIAGNOSTIC STRIP TEST SCH ×4 (07:10→21:15)
[2018-09-23 07:11] LABS: AMYLASE 69 IU/L (25-115)
[2018-09-23] MEDS: HYDROCODONE/ACETAMINOPHEN 5/325MG TABLET PO PRN ×2 (07:35→17:53)
[2018-09-23] MEDS: INSULIN LISPRO 100 UNITS/ML SUBCUT SCH ×4 (07:40→21:00)
[2018-09-23 07:56] LABS: HEMATOCRIT 32.8 % (42.0-52.0); HEMOGLOBIN 11.3 g/dL (14.0-18.0); MEAN CORPUSCULAR VOLUME 89.8 fL (80.0-94.0); PLATELET 223 x1000/uL (130-400); RED BLOOD CELL COUNT 3.65 mill/uL (4.7-6.1); RED CELL DISTRIBUTION WIDTH 13.2 % (11.6-14.6)
[2018-09-23 07:59] LABS: CHLORIDE 106 mEq/L (98-107)
[2018-09-23 08:00] VITALS: BP 119/78
[2018-09-23] MEDS: LISINOPRIL 20MG TABLET PO SCH ×2 (09:00→21:00)
[2018-09-23] MEDS: AMLODIPINE 2.5MG TABLET PO SCH (09:00)
[2018-09-23] MEDS ORDERED: KCL 20MEQ/100ML PREMIX 100 ML IV SCH (10:00)
[2018-09-23 12:00] VITALS: BP 126/86
[2018-09-23 16:00] VITALS: BP 138/90
[2018-09-23] MEDS: DICYCLOMINE HCL 20MG TABLET PO SCH (16:37)
[2018-09-23 20:00] VITALS: BP 121/82
[2018-09-23] MEDS ORDERED: NON FORMULARY PATIENT HOME MED XX SCH (20:00)
[2018-09-23] MEDS: TRAZODONE HCL 50MG TABLET PO SCH (21:32)
[2018-09-23] MEDS: INSULIN GLARGINE UD 100 UNITS/ML SYR SUBCUT SCH (21:37)
[2018-09-24] VITALS: BP 115/79
[2018-09-24] MEDS: METOCLOPRAMIDE HCL 10MG/2ML VIAL IV SCH ×4 (00:17→16:45)
[2018-09-24] MEDS: MORPHINE SULFATE 4 MG/ML CPJ (NOT FOR IM USE) IV PRN ×2 (01:09→11:34)
[2018-09-24 04:00] VITALS: BP 120/70
[2018-09-24] MEDS: BLOOD SUGAR DIAGNOSTIC STRIP TEST SCH ×4 (06:19→21:24)
[2018-09-24] MEDS: INSULIN LISPRO 100 UNITS/ML SUBCUT SCH ×4 (06:19→21:00)
[2018-09-24 07:03] LABS: BASOPHILS % 0.3 % (0.0-2.0); EOSINOPHILS % 1.7 % (0.0-5.0); HEMATOCRIT. 30.3 % (42.0-52.0); HEMOGLOBIN. 10.4 g/dL (14.0-18.0); LYMPHOCYTES % 38.9 % (20.0-50.0); MEAN CORPUSCULAR VOLUME 89.8 fL (80.0-94.0); MEAN PLATELET VOLUME 7.5 fl (7.4-10.4); MONOCYTES % 9.6 % (2.0-8.0); NEUTROPHILS % 49.5 % (40.0-76.0); PLATELET 198 x1000/uL (130-400); RED BLOOD CELL COUNT 3.37 mill/uL (4.7-6.1); RED CELL DISTRIBUTION WIDTH 13.1 % (11.6-14.6)
[2018-09-24 07:44] LABS: CHLORIDE 108 mEq/L (98-107)
[2018-09-24 07:49] LABS: TOTAL IRON BINDING CAPACITY 201 ug/dL (250-450)
[2018-09-24 08:00] VITALS: BP 122/57
[2018-09-24] MEDS: LISINOPRIL 20MG TABLET PO SCH ×2 (09:00→21:00)
[2018-09-24] MEDS: AMLODIPINE 2.5MG TABLET PO SCH (09:00)
[2018-09-24] MEDS: DICYCLOMINE HCL 20MG TABLET PO SCH (10:24)
[2018-09-24] MEDS: ONDANSETRON HCL 4MG/2ML INJ IV PRN (10:58)
[2018-09-24] MEDS ORDERED: POTASSIUM CHLORIDE 20MEQ TABLET SR PO NR (11:15)
[2018-09-24 12:00] VITALS: BP 141/99
[2018-09-24 13:06] LABS: HIV SCREEN 4G Non Reactive (Non Reactive)
[2018-09-24 16:00] VITALS: BP 141/97
[2018-09-24] MEDS: SODIUM CHLORIDE 0.9% 1,000 ML IV SCH (17:05)
[2018-09-24] MEDS: DEXT 5%/0.45% NACL 1000ML 1,000 ML IV SCH (17:57)
[2018-09-24] MEDS ORDERED: BISACODYL 5MG TABLET PO NR ×2 (18:00→22:00)
[2018-09-24] MEDS ORDERED: SORBITOL 70% SOLN 30ML PO NR ×2 (18:00→22:00)
[2018-09-24 20:00] VITALS: BP 157/92
[2018-09-24] MEDS: TRAZODONE HCL 50MG TABLET PO SCH (21:23)
[2018-09-24] MEDS: INSULIN GLARGINE UD 100 UNITS/ML SYR SUBCUT SCH (21:46)
[2018-09-25] VITALS: BP 145/89
[2018-09-25] MEDS: METOCLOPRAMIDE HCL 10MG/2ML VIAL IV SCH ×4 (00:03→18:01)
[2018-09-25 04:00] VITALS: BP 129/83
[2018-09-25] MEDS: MORPHINE SULFATE 4 MG/ML CPJ (NOT FOR IM USE) IV PRN (04:08)
[2018-09-25] MEDS: INSULIN LISPRO 100 UNITS/ML SUBCUT SCH ×3 (06:31→17:40)
[2018-09-25] MEDS: BLOOD SUGAR DIAGNOSTIC STRIP TEST SCH ×3 (06:31→17:41)
[2018-09-25 07:19] LABS: BASOPHILS % 0.6 % (0.0-2.0); EOSINOPHILS % 1.5 % (0.0-5.0); LYMPHOCYTES % 34.2 % (20.0-50.0); MEAN CORPUSCULAR HEMOGLOBIN 30.8 pg (28.0-32.0); MEAN CORPUSCULAR VOLUME 89.7 fL (80.0-94.0); MEAN PLATELET VOLUME 7.5 fl (7.4-10.4); MONOCYTES % 8.8 % (2.0-8.0); NEUTROPHILS % 54.9 % (40.0-76.0); PLATELET 248 x1000/uL (130-400); RED CELL DISTRIBUTION WIDTH 13.3 % (11.6-14.6)
[2018-09-25 07:34] LABS: CHLORIDE 108 mEq/L (98-107)
[2018-09-25] MEDS: AMLODIPINE 2.5MG TABLET PO SCH (08:59)
[2018-09-25] MEDS: DICYCLOMINE HCL 20MG TABLET PO SCH (08:59)
[2018-09-25] MEDS: LISINOPRIL 20MG TABLET PO SCH (09:00)
[2018-09-25] MEDS: DEXT 5%/0.45% NACL 1000ML 1,000 ML IV SCH (09:26)
[2018-09-25] MEDS ORDERED: KCL 20MEQ/100ML PREMIX 100 ML IV NR (09:30)
[2018-09-25] MEDS ORDERED: PROPOFOL 200MG/20ML VIAL IV ONE (09:50)
[2018-09-25] MEDS ORDERED: LABETALOL HCL 5MG/ML VIAL 20ML IV PRN (10:00)
[2018-09-25] MEDS ORDERED: MEPERIDINE HCL/PF 25MG/ML CPJ IV PRN (10:00)
[2018-09-25] MEDS ORDERED: HYDROMORPHONE HCL/PF 2MG/ML CPJ IV PRN (10:00)
[2018-09-25] MEDS ORDERED: ONDANSETRON HCL 4MG/2ML INJ IV PRN (10:00)
[2018-09-25] MEDS ORDERED: SIMETHICONE 40 MG/0.6 ML 30ML ONE (10:20)
[2018-09-25 13:00] VITALS: BP 140/64
[2018-09-25 16:00] VITALS: BP 137/84
[2018-09-25 18:06] VITALS: BP 137/84
[2018-09-27 04:14] LABS: OVA & PARASITE EXAM Final report (.)
== END 2018-09-25 19:20 | disposition home or self-care (01) | DRG 241 ==
LOC: ER 11:40 → 8WST 14:10 → ENRESERV 21:07
PROVIDERS: ADMIT Internal Medicine; ATTEND Internal Medicine
PROC: 0DB68ZX Excision of Stomach, Via Natural or Artificial Opening Endoscopic, Diagnostic (ICD-10-PCS; principal; 2018-09-25)
PROC: 0DB98ZX Excision of Duodenum, Via Natural or Artificial Opening Endoscopic, Diagnostic (ICD-10-PCS; 2018-09-25)
PROC: 0DBB8ZX Excision of Ileum, Via Natural or Artificial Opening Endoscopic, Diagnostic (ICD-10-PCS; 2018-09-25)
PROC: 0DBE8ZX Excision of Large Intestine, Via Natural or Artificial Opening Endoscopic, Diagnostic (ICD-10-PCS; 2018-09-25)
DX: K29.71 Gastritis, unspecified, with bleeding (principal); R64 Cachexia; E11.21 Type 2 diabetes mellitus with diabetic nephropathy; E11.51 Type 2 diabetes mellitus with diabetic peripheral angiopathy without gangrene; K31.84 Gastroparesis; E11.43 Type 2 diabetes mellitus with diabetic autonomic (poly)neuropathy; K22.6 Gastro-esophageal laceration-hemorrhage syndrome; E11.22 Type 2 diabetes mellitus with diabetic chronic kidney disease; D64.9 Anemia, unspecified; N39.0 Urinary tract infection, site not specified; K58.0 Irritable bowel syndrome with diarrhea; N20.0 Calculus of kidney; N18.9 Chronic kidney disease, unspecified; K44.9 Diaphragmatic hernia without obstruction or gangrene; Z60.2 Problems related to living alone; E87.6 Hypokalemia; Z79.4 Long term (current) use of insulin; Z89.421 Acquired absence of other right toe(s); Z89.512 Acquired absence of left leg below knee; Z90.49 Acquired absence of other specified parts of digestive tract; Z68.1 Body mass index [BMI] 19.9 or less, adult
CPT/HCPCS: 36415; 71045; 74176; 80048; 80305; 82150; 82270; 82705; 82728; 82962; 83036; 83540; 83550; 83735; 84132; 84484; 85027; 85044; 87015; 87045; 87077; 87177; 87209; 87389; 87427; 87449; 88305; 88312; 88313; 89055; 93005; 96365; 96375; 99285; C9113; J1815; J2270; J2405; J2704; J2765; J3480; J7030; J7060

== ENCOUNTER 2019-10-03 02:40 | Inpatient (IN) | payer OTHER ==
[~2019-10-03] VITALS: Ht 180.3 cm; Wt 66.2 kg
[~2019-10-03 02:40] MED LIST changes: -AMLO2.5T45 PO; +DIAZ5TAB4 PO; +DICY20TA11 PO; +FERR325T6 PO; -GABA-529 MT; -GLIP10TA10 PO; -LISI-604 PO; -OMEP20CA10 MT; +OMEP20CA14 MT; -Potassium Chloride PO; +TRAM50TA3 PO
[2019-10-03] MEDS ORDERED: SODIUM CHLORIDE 0.9% 1000ML BAG (SEPSIS BOLUS) IV ONE (04:15)
[2019-10-03 05:08] LABS: HEMATOCRIT. 32.9 % (42.0-52.0); HEMOGLOBIN. 11.3 g/dL (14.0-18.0); MEAN CORPUSCULAR VOLUME 93.4 fL (80.0-94.0); MEAN PLATELET VOLUME 7.2 fl (7.4-10.4); PLATELET 264 x1000/uL (130-400); RED BLOOD CELL COUNT 3.52 mill/uL (4.7-6.1); RED CELL DISTRIBUTION WIDTH 13.4 % (11.6-14.6)
[2019-10-03 05:16] LABS: INR 0.9
[2019-10-03 05:17] LABS: CHLORIDE 110 mEq/L (98-107)
[2019-10-03 05:25] LABS: ETHANOL BLOOD < 10 mg/dL
[2019-10-03 05:40] LABS: PLATELET ESTIMATE NORMAL
[2019-10-03] MEDS ORDERED: SODIUM CHLORIDE 0.9% 1,000 ML IV ONE (05:45)
[2019-10-03] MEDS ORDERED: LEVOFLOXACIN 500MG PREMIX 100 ML IV ONE (05:45)
[2019-10-03] MEDS ORDERED: SODIUM CHLORIDE 0.9% 500 ML IV ONE (06:30)
[2019-10-03] MEDS ORDERED: ASPIRIN 325MG TABLET PO ONE (07:15)
[2019-10-03] MEDS ORDERED: ACETAMINOPHEN 325MG TABLET PO PRN (09:00)
[2019-10-03] MEDS ORDERED: DEXTROSE 50% WATER 50ML SYRINGE IV PRN (09:00)
[2019-10-03] MEDS ORDERED: IPRATROPIUM/ALBUTEROL 0.5-3(2.5)MG/3ML NEB HHN PRN (09:00)
[2019-10-03] MEDS ORDERED: BENZONATATE 100MG CAPSULE PO PRN (09:00)
[2019-10-03] MEDS ORDERED: ONDANSETRON HCL 4MG/2ML INJ IV PRN (09:00)
[2019-10-03] MEDS ORDERED: CLONIDINE 0.1MG TABLET PO PRN (09:00)
[2019-10-03] MEDS: BLOOD SUGAR DIAGNOSTIC STRIP TEST SCH ×4 (09:20→21:21)
[2019-10-03] MEDS ORDERED: CEFTRIAXONE 1 G PREMIX 50 ML IV SCH (09:30)
[2019-10-03] MEDS ORDERED: IPRATROPIUM/ALBUTEROL 0.5-3(2.5)MG/3ML NEB ONE (09:34)
[2019-10-03] MEDS: INSULIN LISPRO 100 UNITS/ML SUBCUT SCH ×4 (09:46→21:00)
[2019-10-03] MEDS ORDERED: AZITHROMYCIN 500 MG in DEXT 5% WATER 250 ML IV SCH (10:00)
[2019-10-03 12:30] VITALS: BP 140/85
[2019-10-03] MEDS: HYDROCODONE/ACETAMINOPHEN 5/325MG TABLET PO PRN (13:15)
[2019-10-03] MEDS ORDERED: IOHEXOL-350 100 ML BOTTLE ONE (14:22)
[2019-10-03 16:00] VITALS: BP 117/76
[2019-10-03] MEDS: SODIUM CHLORIDE 0.9% 1,000 ML IV SCH (17:22)
[2019-10-03 20:00] VITALS: BP 138/87
[2019-10-03] MEDS: INSULIN GLARGINE UD 100 UNITS/ML SYR SUBCUT SCH (21:30)
[2019-10-03 21:43] LABS: *AMPHETAMINES SCREEN URINE NEGATIVE (NEGATIVE); *BARBITURATES SCREEN URINE NEGATIVE (NEGATIVE); *BENZODIAZEPINES SCREEN URINE NEGATIVE (NEGATIVE); *COCAINE SCREEN URINE NEGATIVE (NEGATIVE)
[2019-10-03 21:44] LABS: CANNABINOID URINE SCREEN PRESUMTIVE POSITIVE (NEGATIVE); METHADONE URINE SCREEN NEGATIVE (NEGATIVE); OPIATES URINE SCREEN PRESUMTIVE POSITIVE (NEGATIVE); PHENCYCLIDINE URINE SCREEN NEGATIVE (NEGATIVE)
[2019-10-03 23:53] LABS: CLARITY URINE CLEAR (CLEAR); COLOR URINE YELLOW (YELLOW); KETONES URINE NEGATIVE (NEGATIVE); LEUKOCYTE ESTERASE URINE NEGATIVE (NEGATIVE); NITRITE URINE NEGATIVE (NEGATIVE); OCCULT BLOOD URINE 1+ (NEGATIVE); PH URINE 5.5 (4.5-8.0); PROTEIN URINE 2+ (NEGATIVE)
[2019-10-04] VITALS: BP 130/70
[2019-10-04 04:00] VITALS: BP 138/86
[2019-10-04] MEDS: SODIUM CHLORIDE 0.9% 1,000 ML IV SCH ×2 (04:52→20:48)
[2019-10-04] MEDS: BLOOD SUGAR DIAGNOSTIC STRIP TEST SCH ×3 (05:47→20:41)
[2019-10-04 06:32] LABS: BASOPHILS % 0.2 % (0.0-2.0); EOSINOPHILS % 0.7 % (0.0-5.0); HEMATOCRIT. 29.1 % (42.0-52.0); HEMOGLOBIN. 10.2 g/dL (14.0-18.0); LYMPHOCYTES % 11.2 % (20.0-50.0); MEAN CORPUSCULAR HEMOGLOBIN 32.1 pg (28.0-32.0); MEAN CORPUSCULAR VOLUME 91.9 fL (80.0-94.0); MEAN PLATELET VOLUME 6.9 fl (7.4-10.4); MONOCYTES % 6.4 % (2.0-8.0); NEUTROPHILS % 81.5 % (40.0-76.0); PLATELET 199 x1000/uL (130-400); RED BLOOD CELL COUNT 3.16 mill/uL (4.7-6.1); RED CELL DISTRIBUTION WIDTH 13.4 % (11.6-14.6)
[2019-10-04 06:38] LABS: CHLORIDE 108 mEq/L (98-107)
[2019-10-04] MEDS: INSULIN LISPRO 100 UNITS/ML SUBCUT SCH ×3 (06:42→21:00)
[2019-10-04 08:00] VITALS: BP 132/83
[2019-10-04] MEDS: CEFTRIAXONE 1 G PREMIX 50 ML IV SCH (08:43)
[2019-10-04] MEDS ORDERED: CEFTRIAXONE 1 G PREMIX 50 ML IV SCH (09:00)
[2019-10-04] MEDS: HYDROCODONE/ACETAMINOPHEN 5/325MG TABLET PO PRN (09:44)
[2019-10-04] MEDS ORDERED: AZITHROMYCIN 500 MG in DEXT 5% WATER 250 ML IV SCH (10:00)
[2019-10-04] MEDS: INSULIN GLARGINE UD 100 UNITS/ML SYR SUBCUT SCH ×2 (10:02→23:48)
[2019-10-04] MEDS: AZITHROMYCIN 500 MG in DEXT 5% WATER 250 ML IV SCH (10:02)
[2019-10-04] MEDS: POTASSIUM CHLORIDE 20MEQ TABLET SR PO SCH ×2 (10:45→13:07)
[2019-10-04] MEDS ORDERED: LEVO750T21 MT (14:54)
[2019-10-04] MEDS ORDERED: BENZ-16 MT (14:54)
[2019-10-04] MEDS ORDERED: ALBU18HF2 IH (14:54)
[2019-10-04 16:00] VITALS: BP 134/88
[2019-10-04 20:00] VITALS: BP 94/51
[2019-10-04] MEDS ORDERED: ZOLPIDEM TARTRATE 5MG TABLET PO PRN (20:45)
[2019-10-05] VITALS: BP 112/68
[2019-10-05] MEDS ORDERED: HYDROCODONE/ACETAMINOPHEN 5/325MG TABLET ONE (01:27)
[2019-10-05] MEDS: HYDROCODONE/ACETAMINOPHEN 5/325MG TABLET PO PRN (01:46)
[2019-10-05 04:00] VITALS: BP 145/87
[2019-10-05] MEDS: SODIUM CHLORIDE 0.9% 1,000 ML IV SCH (06:15)
[2019-10-05] MEDS: BLOOD SUGAR DIAGNOSTIC STRIP TEST SCH ×3 (06:24→16:40)
[2019-10-05] MEDS: INSULIN LISPRO 100 UNITS/ML SUBCUT SCH ×3 (06:56→17:10)
[2019-10-05 08:00] VITALS: BP 139/90
[2019-10-05] MEDS: CEFTRIAXONE 1 G PREMIX 50 ML IV SCH (10:33)
[2019-10-05] MEDS: INSULIN GLARGINE UD 100 UNITS/ML SYR SUBCUT SCH (10:35)
[2019-10-05] MEDS: AZITHROMYCIN 500 MG in DEXT 5% WATER 250 ML IV SCH (11:48)
[2019-10-05 12:00] VITALS: BP 141/78
[2019-10-05] MEDS ORDERED: INSULIN LISPRO 100 UNITS/ML SUBCUT ONE (12:42)
[2019-10-05 16:00] VITALS: BP 140/80
[2019-10-05 16:40] VITALS: BP 140/80
== END 2019-10-05 18:23 | disposition home or self-care (01) | DRG 720 ==
LOC: EEVIPCON 03:46 → ER 03:46 → 5WST 09:00 → EDBEDREQSVC 09:03 → EDBEDREQ 09:03 → ENRESERV 10:07 → 7EST 10-04 16:43
PROVIDERS: ADMIT Internal Medicine; ATTEND Internal Medicine
DX: A41.9 Sepsis, unspecified organism (principal); J96.00 Acute respiratory failure, unspecified whether with hypoxia or hypercapnia; N17.9 Acute kidney failure, unspecified; J18.9 Pneumonia, unspecified organism; E11.22 Type 2 diabetes mellitus with diabetic chronic kidney disease; I13.0 Hypertensive heart and chronic kidney disease with heart failure and stage 1 through stage 4 chronic kidney disease, or unspecified chronic kidney disease; E44.1 Mild protein-calorie malnutrition; E87.8 Other disorders of electrolyte and fluid balance, not elsewhere classified; D64.9 Anemia, unspecified; N18.9 Chronic kidney disease, unspecified; F15.90 Other stimulant use, unspecified, uncomplicated; Z89.9 Acquired absence of limb, unspecified; K58.9 Irritable bowel syndrome, unspecified; I73.9 Peripheral vascular disease, unspecified; Z90.49 Acquired absence of other specified parts of digestive tract
CPT/HCPCS: 36415; 71275; 80048; 80053; 80305; 80320; 81003; 82962; 83605; 83880; 84145; 84484; 85025; 87420; 87635; 87804; 93005; J0456; J0696; J1815; J1956; J2405; J7030; J7040; J7060; Q9967; G0480; U0002

== ENCOUNTER 2019-10-15 00:42 | Emergency (ER) | payer OTHER ==
[~2019-10-15] VITALS: Ht 170.2 cm; Wt 65.0 kg
[~2019-10-15 00:42] MED LIST changes: +ALBU18HF2 IH; +BENZ-16 MT; +LEVO750T21 MT
[2019-10-15] MEDS ORDERED: SODIUM CHLORIDE 0.9% 1,000 ML IV ONE (01:04)
[2019-10-15 01:26] LABS: BASOPHILS % 0.2 % (0.0-2.0); EOSINOPHILS % 0.7 % (0.0-5.0); HEMATOCRIT. 28.1 % (42.0-52.0); HEMOGLOBIN. 9.8 g/dL (14.0-18.0); MEAN CORPUSCULAR VOLUME 91.8 fL (80.0-94.0); MEAN PLATELET VOLUME 7.1 fl (7.4-10.4); MONOCYTES % 4.4 % (2.0-8.0); NEUTROPHILS % 83.7 % (40.0-76.0); PLATELET 280 x1000/uL (130-400); RED BLOOD CELL COUNT 3.06 mill/uL (4.7-6.1); RED CELL DISTRIBUTION WIDTH 12.9 % (11.6-14.6)
[2019-10-15 01:29] LABS: CHLORIDE 109 mEq/L (98-107)
[2019-10-15 01:33] LABS: ETHANOL BLOOD < 10 mg/dL
[2019-10-15] MEDS ORDERED: POTASSIUM CHLORIDE 20MEQ TABLET SR PO ONE (04:00)
[2019-10-15 06:15] LABS: COLOR URINE YELLOW (YELLOW); KETONES URINE NEGATIVE (NEGATIVE); LEUKOCYTE ESTERASE URINE NEGATIVE (NEGATIVE); NITRITE URINE NEGATIVE (NEGATIVE); OCCULT BLOOD URINE 1+ (NEGATIVE); PROTEIN URINE 2+ (NEGATIVE); SPECIFIC GRAVITY URINE 1.024 (1.005-1.030); UROBILINOGEN URINE 0.2 E.U./dL (0.2-1.0)
[2019-10-15 06:16] LABS: CLARITY URINE HAZY (CLEAR)
[2019-10-15 06:26] LABS: *AMPHETAMINES SCREEN URINE NEGATIVE (NEGATIVE); *BARBITURATES SCREEN URINE NEGATIVE (NEGATIVE); *BENZODIAZEPINES SCREEN URINE NEGATIVE (NEGATIVE); *COCAINE SCREEN URINE NEGATIVE (NEGATIVE); METHADONE URINE SCREEN NEGATIVE (NEGATIVE); OPIATES URINE SCREEN PRESUMTIVE POSITIVE (NEGATIVE)
[2019-10-15 06:27] LABS: CANNABINOID URINE SCREEN PRESUMTIVE POSITIVE (NEGATIVE); PHENCYCLIDINE URINE SCREEN NEGATIVE (NEGATIVE)
[2019-10-15 07:57] VITALS: BP 145/88
== END 2019-10-15 08:07 | disposition short-term general hospital (02) ==
LOC: ER 00:42 → CANBEDREQ 03:30 → ER 08:07
DX: I63.9 Cerebral infarction, unspecified (principal); R53.1 Weakness; E87.6 Hypokalemia; E11.9 Type 2 diabetes mellitus without complications; I10 Essential (primary) hypertension; Z79.899 Other long term (current) drug therapy; Z96.652 Presence of left artificial knee joint; Z90.49 Acquired absence of other specified parts of digestive tract; Z89.612 Acquired absence of left leg above knee
CPT/HCPCS: 36415; 70450; 71045; 80053; 80305; 80320; 81003; 82962; 84484; 85025; 93005; 99285; J7030; G0480

== ENCOUNTER 2020-06-20 05:12 | Emergency (ER) | payer OTHER ==
[~2020-06-20] VITALS: Ht 172.7 cm; Wt 73.0 kg
[~2020-06-20 05:12] MED LIST changes: +AMOX-424 MT; -LEVO750T21 MT; +METO-293 MT; +SULF1TAB48 MT
[2020-06-20] MEDS ORDERED: MORPHINE SULFATE 4 MG/ML CPJ (NOT FOR IM USE) IV STA (06:12)
[2020-06-20] MEDS ORDERED: ONDANSETRON HCL 4MG/2ML INJ IV STA (06:12)
[2020-06-20] MEDS ORDERED: SODIUM CHLORIDE 0.9% 1,000 ML IV ONE (06:15)
[2020-06-20 06:44] LABS: BASOPHILS % 0.3 % (0.0-2.0); EOSINOPHILS % 0.8 % (0.0-5.0); HEMATOCRIT. 31.4 % (42.0-52.0); HEMOGLOBIN. 10.8 g/dL (14.0-18.0); LYMPHOCYTES % 17.7 % (20.0-50.0); MEAN CORPUSCULAR VOLUME 92.7 fL (80.0-94.0); MEAN PLATELET VOLUME 7.6 fl (7.4-10.4); MONOCYTES % 12.9 % (2.0-8.0); NEUTROPHILS % 68.3 % (40.0-76.0); PLATELET 292 x1000/uL (130-400); RED BLOOD CELL COUNT 3.39 mill/uL (4.7-6.1); RED CELL DISTRIBUTION WIDTH 12.9 % (11.6-14.6)
[2020-06-20 06:50] LABS: CHLORIDE 101 mEq/L (98-107)
[2020-06-20 07:00] LABS: CREATINE KINASE 136 IU/L (39-308); PROTHROMBIN TIME 10.3 sec (9.6-11.0)
[2020-06-20 07:02] LABS: CREATINE KINASE MB FRACTION 2.5 ng/mL (0.5-3.6)
[2020-06-20] MEDS ORDERED: POTASSIUM CHLORIDE 20MEQ TABLET SR PO ONE (08:45)
[2020-06-20 10:55] LABS: COLOR URINE YELLOW (YELLOW); KETONES URINE NEGATIVE (NEGATIVE); LEUKOCYTE ESTERASE URINE NEGATIVE (NEGATIVE); NITRITE URINE NEGATIVE (NEGATIVE); OCCULT BLOOD URINE 2+ (NEGATIVE); PH URINE 5.5 (4.5-8.0); PROTEIN URINE 2+ (NEGATIVE); UROBILINOGEN URINE 0.2 E.U./dL (0.2-1.0)
[2020-06-20 10:56] LABS: CLARITY URINE HAZY (CLEAR)
[2020-06-20 11:24] VITALS: BP 140/96
== END 2020-06-20 11:42 | disposition short-term general hospital (02) ==
LOC: ER 05:12 → EDBEDREQ 06:17 → ER 11:42 → CANBEDREQ 16:46
DX: S72.001A Fracture of unspecified part of neck of right femur, initial encounter for closed fracture (principal); M97.01XA Periprosthetic fracture around internal prosthetic right hip joint, initial encounter; E87.8 Other disorders of electrolyte and fluid balance, not elsewhere classified; I10 Essential (primary) hypertension; E11.9 Type 2 diabetes mellitus without complications; K21.9 Gastro-esophageal reflux disease without esophagitis; Z79.899 Other long term (current) drug therapy; Z90.49 Acquired absence of other specified parts of digestive tract; Z89.512 Acquired absence of left leg below knee; W18.30XA Fall on same level, unspecified, initial encounter; Y93.89 Activity, other specified; Y92.89 Other specified places as the place of occurrence of the external cause; Y99.8 Other external cause status
CPT/HCPCS: 36415; 70450; 71045; 72192; 73502; 73552; 73562; 80053; 81003; 82550; 82553; 82962; 83690; 83880; 84484; 85025; 85610; 93005; 96361; 96374; 96375; 99285; J2270; J2405; J7030

== ENCOUNTER 2020-12-21 21:07 | Inpatient (IN) | payer OTHER ==
[~2020-12-21] VITALS: Ht 177.8 cm; Wt 57.7 kg
[2020-12-21] MEDS ORDERED: SODIUM CHLORIDE 0.9% 1000ML BAG (SEPSIS BOLUS) IV ONE (22:45)
[2020-12-21 23:49] LABS: BASOPHILS % 0.2 % (0.0-2.0); EOSINOPHILS % 0.6 % (0.0-5.0); HEMATOCRIT. 29.8 % (42.0-52.0); HEMOGLOBIN. 10.7 g/dL (14.0-18.0); LYMPHOCYTES % 14.7 % (20.0-50.0); MEAN CORPUSCULAR HEMOGLOBIN 32.3 pg (28.0-32.0); MEAN CORPUSCULAR VOLUME 90.2 fL (80.0-94.0); MEAN PLATELET VOLUME 7.1 fl (7.4-10.4); NEUTROPHILS % 79.5 % (40.0-76.0); PLATELET 243 x1000/uL (130-400); RED CELL DISTRIBUTION WIDTH 14.4 % (11.6-14.6)
[2020-12-21 23:55] LABS: CHLORIDE 109 mEq/L (98-107)
[2020-12-21 23:59] LABS: ETHANOL BLOOD < 10 mg/dL
[2020-12-21 23:59] LABS: CLARITY URINE CLOUDY (CLEAR); COLOR URINE YELLOW (YELLOW); KETONES URINE NEGATIVE (NEGATIVE); LEUKOCYTE ESTERASE URINE 3+ (NEGATIVE); NITRITE URINE NEGATIVE (NEGATIVE); OCCULT BLOOD URINE 2+ (NEGATIVE); PH URINE 6.5 (4.5-8.0); PROTEIN URINE 1+ (NEGATIVE); SPECIFIC GRAVITY URINE 1.009 (1.005-1.030); UROBILINOGEN URINE 0.2 E.U./dL (0.2-1.0)
[2020-12-22] VITALS (23 sets, daily range): BP systolic 101–163; BP diastolic 18–110
[2020-12-22 00:10] LABS: BG BASE EXCESS -1.4 mmol/L (-2.0-2.0); BG CARBOXYHEMOGLOBIN 0.2 % (0.5-1.5); BG DEOXYHEMOGLOBIN 3.1 % (0.0-5.0); BG FRACTION INSPIRED OXYGEN 28; BG HCO3 ACT 22.7 mmol/L (22.0-26.0); BG METHEMOGLOBIN 0.2 % (0.0-1.5); BG OXYGEN SATURATION 96.9 % (92.0-98.5); BG OXYHEMOGLOBIN 96.5 % (94.0-97.0); BG PCO2 36.1 mmHg (35.0-45.0); BG PH 7.417 (7.350-7.450); BG PO2 104.3 mmHg (75.0-100.0); BG SAMPLE SITE LEFT RADIAL; BG TOTAL HEMOGLOBIN 10.8 g/dL (12.0-18.0); BG VENT MODE NASAL CANNULA
[2020-12-22 00:20] LABS: *BARBITURATES SCREEN URINE NEGATIVE (NEGATIVE); *BENZODIAZEPINES SCREEN URINE NEGATIVE (NEGATIVE)
[2020-12-22 00:21] LABS: *AMPHETAMINES SCREEN URINE NEGATIVE (NEGATIVE); *COCAINE SCREEN URINE NEGATIVE (NEGATIVE); CANNABINOID URINE SCREEN PRESUMTIVE POSITIVE (NEGATIVE); METHADONE URINE SCREEN NEGATIVE (NEGATIVE); OPIATES URINE SCREEN NEGATIVE (NEGATIVE); PHENCYCLIDINE URINE SCREEN NEGATIVE (NEGATIVE)
[2020-12-22] MEDS ORDERED: CEFTRIAXONE 1 G PREMIX 50 ML IV SCH ×2 (00:30→06:00)
[2020-12-22] MEDS ORDERED: POTASSIUM CHLORIDE 20MEQ TABLET SR PO SCH (00:30)
[2020-12-22] MEDS ORDERED: MAGNESIUM 2 G PREMIX 50 ML IV SCH (01:00)
[2020-12-22] MEDS ORDERED: POTASSIUM CHLORIDE INJ 40 MEQ in DEXT 5% WATER 250 ML IV SCH (01:00)
[2020-12-22 05:50] LABS: CHLORIDE 114 mEq/L (98-107)
[2020-12-22] MEDS ORDERED: MORPHINE SULFATE 2 MG/ML CPJ (NOT FOR IM USE) IV PRN (06:00)
[2020-12-22] MEDS ORDERED: DEXTROSE 50% WATER 50ML SYRINGE IV PRN ×2 (06:00)
[2020-12-22 06:34] LABS: BASOPHILS % 0.3 % (0.0-2.0); EOSINOPHILS % 0.7 % (0.0-5.0); HEMATOCRIT. 28.3 % (42.0-52.0); HEMOGLOBIN. 10.2 g/dL (14.0-18.0); LYMPHOCYTES % 14.9 % (20.0-50.0); MEAN CORPUSCULAR HEMOGLOBIN 32.9 pg (28.0-32.0); MEAN CORPUSCULAR VOLUME 91.1 fL (80.0-94.0); MEAN PLATELET VOLUME 7.8 fl (7.4-10.4); MONOCYTES % 5.4 % (2.0-8.0); NEUTROPHILS % 78.7 % (40.0-76.0); PLATELET 237 x1000/uL (130-400); RED BLOOD CELL COUNT 3.11 mill/uL (4.7-6.1); RED CELL DISTRIBUTION WIDTH 14.2 % (11.6-14.6)
[2020-12-22] MEDS: BLOOD SUGAR DIAGNOSTIC STRIP TEST SCH ×4 (08:15→20:05)
[2020-12-22] MEDS: INSULIN LISPRO 100 UNITS/ML SUBCUT SCH ×4 (08:56→20:05)
[2020-12-22] MEDS ORDERED: POTASSIUM CHLORIDE 20MEQ TABLET SR PO NR ×3 (09:00→16:30)
[2020-12-22] MEDS: DICYCLOMINE HCL 20MG TABLET PO SCH ×3 (10:39→23:05)
[2020-12-22] MEDS: INSULIN GLARGINE UD 100 UNITS/ML SYR SUBCUT SCH ×2 (10:39→22:38)
[2020-12-22] MEDS: LOPERAMIDE HCL 2MG CAPSULE PO PRN ×2 (10:39→17:35)
[2020-12-22] MEDS ORDERED: POTASSIUM CHLORIDE INJ 40 MEQ in DEXT 5% WATER 230 ML IV ONE ×2 (17:30→22:00)
[2020-12-22] MEDS ORDERED: IOHEXOL-300 100 ML BOTTLE ONE (19:11)
[2020-12-22] MEDS: CEFTRIAXONE 1,000 MG in DEXTROSE 5% WATER 50 ML IV SCH (22:37)
[2020-12-23] VITALS (29 sets, daily range): BP systolic 106–153; BP diastolic 66–102
[2020-12-23] MEDS: DICYCLOMINE HCL 20MG TABLET PO SCH ×4 (05:15→23:02)
[2020-12-23 05:58] LABS: BASOPHILS % 0.4 % (0.0-2.0); CHLORIDE 116 mEq/L (98-107); EOSINOPHILS % 1.1 % (0.0-5.0); HEMATOCRIT. 27.3 % (42.0-52.0); HEMOGLOBIN. 9.9 g/dL (14.0-18.0); LYMPHOCYTES % 20.4 % (20.0-50.0); MEAN CORPUSCULAR HEMOGLOBIN 32.7 pg (28.0-32.0); MEAN CORPUSCULAR VOLUME 90.5 fL (80.0-94.0); MEAN PLATELET VOLUME 7.4 fl (7.4-10.4); MONOCYTES % 5.3 % (2.0-8.0); NEUTROPHILS % 72.8 % (40.0-76.0); PLATELET 227 x1000/uL (130-400); RED BLOOD CELL COUNT 3.02 mill/uL (4.7-6.1); RED CELL DISTRIBUTION WIDTH 14.9 % (11.6-14.6)
[2020-12-23] MEDS: BLOOD SUGAR DIAGNOSTIC STRIP TEST SCH ×4 (08:07→21:08)
[2020-12-23] MEDS: INSULIN LISPRO 100 UNITS/ML SUBCUT SCH ×4 (08:08→21:00)
[2020-12-23] MEDS: LOPERAMIDE HCL 2MG CAPSULE PO PRN (08:08)
[2020-12-23] MEDS: INSULIN GLARGINE UD 100 UNITS/ML SYR SUBCUT SCH ×2 (11:14→22:00)
[2020-12-23] MEDS: ZOLPIDEM TARTRATE 5MG TABLET PO PRN (22:24)
[2020-12-23] MEDS: CEFTRIAXONE 1,000 MG in DEXTROSE 5% WATER 50 ML IV SCH (22:30)
[2020-12-24] VITALS (36 sets, daily range): BP systolic 94–152; BP diastolic 39–125
[2020-12-24] MEDS: DICYCLOMINE HCL 20MG TABLET PO SCH ×4 (05:31→23:31)
[2020-12-24 05:47] LABS: BASOPHILS % 0.4 % (0.0-2.0); HEMATOCRIT. 26.4 % (42.0-52.0); HEMOGLOBIN. 9.5 g/dL (14.0-18.0); MEAN CORPUSCULAR HEMOGLOBIN 33.1 pg (28.0-32.0); MEAN CORPUSCULAR VOLUME 92.4 fL (80.0-94.0); MEAN PLATELET VOLUME 7.4 fl (7.4-10.4); MONOCYTES % 4.6 % (2.0-8.0); PLATELET 199 x1000/uL (130-400); RED BLOOD CELL COUNT 2.86 mill/uL (4.7-6.1); RED CELL DISTRIBUTION WIDTH 14.9 % (11.6-14.6)
[2020-12-24 05:50] LABS: CHLORIDE 114 mEq/L (98-107)
[2020-12-24] MEDS ORDERED: POTASSIUM CHLORIDE INJ 60 MEQ in DEXT 5% WATER 500 ML IV ONE (07:30)
[2020-12-24] MEDS: BLOOD SUGAR DIAGNOSTIC STRIP TEST SCH ×4 (08:16→20:12)
[2020-12-24] MEDS: INSULIN LISPRO 100 UNITS/ML SUBCUT SCH ×4 (08:23→20:22)
[2020-12-24] MEDS: LOPERAMIDE HCL 2MG CAPSULE PO PRN ×2 (08:23→17:27)
[2020-12-24] MEDS: INSULIN GLARGINE UD 100 UNITS/ML SYR SUBCUT SCH ×2 (11:28→22:06)
[2020-12-24] MEDS ORDERED: LIDOCAINE HCL 1% 20ML VIAL (Pyxis) INJ ONE (13:32)
[2020-12-24] MEDS: ZOLPIDEM TARTRATE 5MG TABLET PO PRN (22:06)
[2020-12-24] MEDS: CEFTRIAXONE 1,000 MG in DEXTROSE 5% WATER 50 ML IV SCH (23:31)
[2020-12-25] VITALS (49 sets, daily range): BP systolic 39–216; BP diastolic 18–128
[2020-12-25] MEDS: LOPERAMIDE HCL 2MG CAPSULE PO PRN (03:02)
[2020-12-25 05:22] LABS: CHLORIDE 113 mEq/L (98-107)
[2020-12-25] MEDS: DICYCLOMINE HCL 20MG TABLET PO SCH ×3 (05:58→17:34)
[2020-12-25 06:02] LABS: BASOPHILS % 0.7 % (0.0-2.0); EOSINOPHILS % 1.6 % (0.0-5.0); HEMATOCRIT. 23.4 % (42.0-52.0); HEMOGLOBIN. 8.5 g/dL (14.0-18.0); LYMPHOCYTES % 28.7 % (20.0-50.0); MEAN PLATELET VOLUME 7.7 fl (7.4-10.4); MONOCYTES % 5.1 % (2.0-8.0); NEUTROPHILS % 63.9 % (40.0-76.0); PLATELET 152 x1000/uL (130-400); RED BLOOD CELL COUNT 2.57 mill/uL (4.7-6.1)
[2020-12-25 06:08] LABS: CANCER ANTIGEN 125 6.1 U/mL (Not Estab.)
[2020-12-25] MEDS: BLOOD SUGAR DIAGNOSTIC STRIP TEST SCH ×4 (07:50→21:00)
[2020-12-25] MEDS: INSULIN LISPRO 100 UNITS/ML SUBCUT SCH ×4 (08:20→22:03)
[2020-12-25] MEDS: POTASSIUM CHLORIDE 20MEQ/PACKET PO SCH (09:19)
[2020-12-25] MEDS: INSULIN GLARGINE UD 100 UNITS/ML SYR SUBCUT SCH ×2 (09:20→22:54)
[2020-12-25] MEDS: PREGABALIN 75MG CAPSULE PO SCH (17:34)
[2020-12-25] MEDS: ZOLPIDEM TARTRATE 5MG TABLET PO PRN (22:45)
[2020-12-25] MEDS: CEFTRIAXONE 1,000 MG in DEXTROSE 5% WATER 50 ML IV SCH (23:45)
[2020-12-26] VITALS (21 sets, daily range): BP systolic 74–129; BP diastolic 40–86
[2020-12-26] MEDS: DICYCLOMINE HCL 20MG TABLET PO SCH ×5 (00:39→23:02)
[2020-12-26] MEDS: BLOOD SUGAR DIAGNOSTIC STRIP TEST SCH ×4 (06:06→21:02)
[2020-12-26] MEDS: INSULIN LISPRO 100 UNITS/ML SUBCUT SCH ×4 (06:06→21:01)
[2020-12-26 06:17] LABS: CHLORIDE 115 mEq/L (98-107)
[2020-12-26 06:19] LABS: BASOPHILS % 0.3 % (0.0-2.0); EOSINOPHILS % 1.2 % (0.0-5.0); HEMATOCRIT. 23.6 % (42.0-52.0); HEMOGLOBIN. 8.4 g/dL (14.0-18.0); LYMPHOCYTES % 21.5 % (20.0-50.0); MEAN CORPUSCULAR HEMOGLOBIN 32.6 pg (28.0-32.0); MEAN CORPUSCULAR VOLUME 91.7 fL (80.0-94.0); MEAN PLATELET VOLUME 7.6 fl (7.4-10.4); MONOCYTES % 5.8 % (2.0-8.0); NEUTROPHILS % 71.2 % (40.0-76.0); PLATELET 158 x1000/uL (130-400); RED BLOOD CELL COUNT 2.57 mill/uL (4.7-6.1)
[2020-12-26] MEDS: INSULIN GLARGINE UD 100 UNITS/ML SYR SUBCUT SCH ×2 (10:00→21:02)
[2020-12-26] MEDS: PREGABALIN 75MG CAPSULE PO SCH ×2 (10:05→18:37)
[2020-12-26] MEDS: POTASSIUM CHLORIDE 20MEQ/PACKET PO SCH (10:05)
[2020-12-26] MEDS: CEFTRIAXONE 1,000 MG in DEXTROSE 5% WATER 50 ML IV SCH (23:02)
[2020-12-26] MEDS: ZOLPIDEM TARTRATE 5MG TABLET PO PRN (23:02)
[2020-12-27] VITALS (11 sets, daily range): BP systolic 94–155; BP diastolic 57–108
[2020-12-27] MEDS: LOPERAMIDE HCL 2MG CAPSULE PO PRN ×2 (02:43→13:35)
[2020-12-27] MEDS: DICYCLOMINE HCL 20MG TABLET PO SCH ×4 (05:51→23:57)
[2020-12-27] MEDS: BLOOD SUGAR DIAGNOSTIC STRIP TEST SCH ×4 (07:48→21:03)
[2020-12-27] MEDS: INSULIN LISPRO 100 UNITS/ML SUBCUT SCH ×4 (09:06→21:02)
[2020-12-27] MEDS: POTASSIUM CHLORIDE 20MEQ/PACKET PO SCH (09:07)
[2020-12-27] MEDS: PREGABALIN 75MG CAPSULE PO SCH ×2 (09:07→17:24)
[2020-12-27] MEDS: INSULIN GLARGINE UD 100 UNITS/ML SYR SUBCUT SCH ×2 (10:29→21:03)
[2020-12-27] MEDS: ZOLPIDEM TARTRATE 5MG TABLET PO PRN (23:57)
[2020-12-28] VITALS (26 sets, daily range): BP systolic 72–130; BP diastolic 48–76
[2020-12-28] MEDS: DICYCLOMINE HCL 20MG TABLET PO SCH ×4 (05:36→23:51)
[2020-12-28 06:37] LABS: BASOPHILS % 0.5 % (0.0-2.0); EOSINOPHILS % 1.7 % (0.0-5.0); HEMATOCRIT. 21.8 % (42.0-52.0); HEMOGLOBIN. 7.7 g/dL (14.0-18.0); LYMPHOCYTES % 19.5 % (20.0-50.0); MEAN CORPUSCULAR HEMOGLOBIN 32.5 pg (28.0-32.0); MEAN PLATELET VOLUME 7.5 fl (7.4-10.4); MONOCYTES % 5.7 % (2.0-8.0); NEUTROPHILS % 72.6 % (40.0-76.0); PLATELET 166 x1000/uL (130-400); RED BLOOD CELL COUNT 2.37 mill/uL (4.7-6.1); RED CELL DISTRIBUTION WIDTH 15.4 % (11.6-14.6)
[2020-12-28 07:55] LABS: CHLORIDE 112 mEq/L (98-107)
[2020-12-28] MEDS: BLOOD SUGAR DIAGNOSTIC STRIP TEST SCH ×4 (08:00→21:40)
[2020-12-28 08:14] LABS: HAPTOGLOBIN 106 mg/dL (30-200)
[2020-12-28] MEDS: PREGABALIN 75MG CAPSULE PO SCH ×2 (08:33→16:17)
[2020-12-28] MEDS: POTASSIUM CHLORIDE 20MEQ/PACKET PO SCH (08:33)
[2020-12-28] MEDS: LOPERAMIDE HCL 2MG CAPSULE PO PRN (08:46)
[2020-12-28] MEDS: INSULIN LISPRO 100 UNITS/ML SUBCUT SCH ×4 (08:46→21:41)
[2020-12-28 10:12] LABS: SACCHAROMYCES CEREVISIAE IGG 71.2 Units (0.0-24.9); SACCHAROMYCES CEREVISIAE IGM 64.4 Units (0.0-24.9)
[2020-12-28] MEDS: INSULIN GLARGINE UD 100 UNITS/ML SYR SUBCUT SCH ×2 (10:53→21:41)
[2020-12-28 11:12] LABS: HEPATITIS B SURFACE ANTIGEN NEGATIVE
[2020-12-28 11:42] LABS: HEPATITIS A AB IGM NEGATIVE (NEGATIVE)
[2020-12-28 12:51] LABS: ATYPICAL pANCA <1:20 titer (Neg:<1:20)
[2020-12-28] MEDS ORDERED: IOHEXOL-300 100 ML BOTTLE ONE (14:51)
[2020-12-28] MEDS ORDERED: METOCLOPRAMIDE HCL 5MG TABLET PO ONE ×2 (15:30→19:30)
[2020-12-28] MEDS ORDERED: BISACODYL 5MG TABLET PO ONE ×2 (15:30→19:30)
[2020-12-28] MEDS ORDERED: SORBITOL 70% SOLN 30ML PO ONE ×2 (16:00→20:00)
[2020-12-29] VITALS (19 sets, daily range): BP systolic 103–148; BP diastolic 28–89
[2020-12-29 04:09] LABS: OVA & PARASITE EXAM Final report (.)
[2020-12-29] MEDS: DICYCLOMINE HCL 20MG TABLET PO SCH ×4 (05:38→23:26)
[2020-12-29 05:58] LABS: CHLORIDE 113 mEq/L (98-107)
[2020-12-29 06:30] LABS: BASOPHILS % 0.6 % (0.0-2.0); EOSINOPHILS % 1.5 % (0.0-5.0); LYMPHOCYTES % 27.5 % (20.0-50.0); MEAN CORPUSCULAR HEMOGLOBIN 33.6 pg (28.0-32.0); MEAN CORPUSCULAR VOLUME 93.7 fL (80.0-94.0); MEAN PLATELET VOLUME 7.8 fl (7.4-10.4); MONOCYTES % 8.5 % (2.0-8.0); NEUTROPHILS % 61.9 % (40.0-76.0); PLATELET 143 x1000/uL (130-400); RED BLOOD CELL COUNT 2.13 mill/uL (4.7-6.1); RED CELL DISTRIBUTION WIDTH 15.7 % (11.6-14.6)
[2020-12-29 06:46] LABS: INR 1.1; PARTIAL THROMBOPLASTIN TIME 26.9 sec (23.4-31.0); PROTHROMBIN TIME 11.4 sec (9.6-11.0)
[2020-12-29] MEDS: BLOOD SUGAR DIAGNOSTIC STRIP TEST SCH ×4 (07:30→20:52)
[2020-12-29] MEDS: INSULIN LISPRO 100 UNITS/ML SUBCUT SCH ×3 (08:00→21:23)
[2020-12-29 08:16] LABS: HEMOGLOBIN. 7.2 g/dL (14.0-18.0)
[2020-12-29] MEDS: POTASSIUM CHLORIDE 20MEQ/PACKET PO SCH (09:00)
[2020-12-29] MEDS: PREGABALIN 75MG CAPSULE PO SCH ×2 (09:00→17:08)
[2020-12-29 09:13] LABS: KAPPA LT CHAINS FREE SERUM 48.9 mg/L (3.3-19.4); KAPPA/LAMBDA RATIO 1.37 (0.26-1.65); LAMBDA LT CHAINS FREE SERUM 35.7 mg/L (5.7-26.3)
[2020-12-29] MEDS: INSULIN GLARGINE UD 100 UNITS/ML SYR SUBCUT SCH ×2 (10:00→21:24)
[2020-12-29] MEDS ORDERED: FENTANYL CITRATE/PF 50MCG/ML 2ML VIAL IV PRN (13:12)
[2020-12-29] MEDS ORDERED: MIDAZOLAM HCL 5 MG/5 ML VIAL IV PRN (13:13)
[2020-12-29] MEDS ORDERED: DIAZEPAM 5 MG/ML 2ML CPJ IV PRN (13:15)
[2020-12-29] MEDS ORDERED: SIMETHICONE 40 MG/0.6 ML 30ML ONE (13:19)
[2020-12-29] MEDS ORDERED: MIDAZOLAM HCL 5 MG/5 ML VIAL ONE (13:20)
[2020-12-29] MEDS ORDERED: DIAZEPAM 5 MG/ML 2ML CPJ ONE (13:20)
[2020-12-29] MEDS ORDERED: FENTANYL CITRATE/PF 50MCG/ML 2ML VIAL ONE (13:20)
[2020-12-30] VITALS (15 sets, daily range): BP systolic 87–138; BP diastolic 50–84
[2020-12-30] MEDS: LOPERAMIDE HCL 2MG CAPSULE PO PRN (00:24)
[2020-12-30 07:09] LABS: BASOPHILS % 0.5 % (0.0-2.0); CHLORIDE 108 mEq/L (98-107); HEMATOCRIT. 27.9 % (42.0-52.0); HEMOGLOBIN. 9.7 g/dL (14.0-18.0); LYMPHOCYTES % 19.7 % (20.0-50.0); MEAN CORPUSCULAR HEMOGLOBIN 32.6 pg (28.0-32.0); MEAN CORPUSCULAR VOLUME 93.5 fL (80.0-94.0); MEAN PLATELET VOLUME 7.5 fl (7.4-10.4); MONOCYTES % 7.4 % (2.0-8.0); NEUTROPHILS % 71.4 % (40.0-76.0); PLATELET 178 x1000/uL (130-400); RED BLOOD CELL COUNT 2.99 mill/uL (4.7-6.1); RED CELL DISTRIBUTION WIDTH 15.8 % (11.6-14.6)
[2020-12-30] MEDS: DICYCLOMINE HCL 20MG TABLET PO SCH ×3 (07:09→17:38)
[2020-12-30] MEDS: BLOOD SUGAR DIAGNOSTIC STRIP TEST SCH ×4 (07:46→21:30)
[2020-12-30] MEDS: INSULIN LISPRO 100 UNITS/ML SUBCUT SCH ×4 (07:47→21:00)
[2020-12-30] MEDS: PREGABALIN 75MG CAPSULE PO SCH ×2 (09:11→17:36)
[2020-12-30] MEDS: POTASSIUM CHLORIDE 20MEQ/PACKET PO SCH (09:11)
[2020-12-30] MEDS: INSULIN GLARGINE UD 100 UNITS/ML SYR SUBCUT SCH ×2 (10:00→21:31)
[2020-12-30] MEDS ORDERED: GADOTERATE MEGLUMINE 5 MMOL/10 ML VIAL IV ONE (13:32)
[2020-12-30] MEDS ORDERED: SORBITOL 70% SOLN 30ML PO NR ×2 (16:00→20:00)
[2020-12-31] VITALS (14 sets, daily range): BP systolic 90–118; BP diastolic 51–79
[2020-12-31] MEDS: BLOOD SUGAR DIAGNOSTIC STRIP TEST SCH ×4 (06:00→20:39)
[2020-12-31] MEDS: DICYCLOMINE HCL 20MG TABLET PO SCH ×5 (06:00→23:40)
[2020-12-31] MEDS ORDERED: SORBITOL 70% SOLN 30ML PO SCH (06:00)
[2020-12-31] MEDS: INSULIN LISPRO 100 UNITS/ML SUBCUT SCH ×4 (06:16→20:39)
[2020-12-31 06:21] LABS: CHLORIDE 113 mEq/L (98-107)
[2020-12-31 06:22] LABS: BASOPHILS % 0.6 % (0.0-2.0); EOSINOPHILS % 1.2 % (0.0-5.0); HEMATOCRIT. 32.7 % (42.0-52.0); HEMOGLOBIN. 11.2 g/dL (14.0-18.0); LYMPHOCYTES % 21.2 % (20.0-50.0); MEAN CORPUSCULAR HEMOGLOBIN 32.4 pg (28.0-32.0); MEAN PLATELET VOLUME 7.5 fl (7.4-10.4); PLATELET 198 x1000/uL (130-400); RED BLOOD CELL COUNT 3.45 mill/uL (4.7-6.1); RED CELL DISTRIBUTION WIDTH 16.4 % (11.6-14.6)
[2020-12-31 06:36] LABS: INR 1.1; PARTIAL THROMBOPLASTIN TIME 27.9 sec (23.4-31.0); PROTHROMBIN TIME 11.4 sec (9.6-11.0)
[2020-12-31] MEDS ORDERED: NA PHOS,M-B/NA PHOS,DI-BA ENEMA 118ML PR NR (08:00)
[2020-12-31] MEDS: POTASSIUM CHLORIDE 20MEQ/PACKET PO SCH (09:00)
[2020-12-31] MEDS: PREGABALIN 75MG CAPSULE PO SCH ×2 (09:00→18:01)
[2020-12-31] MEDS: INSULIN GLARGINE UD 100 UNITS/ML SYR SUBCUT SCH ×2 (09:12→18:03)
[2020-12-31] MEDS ORDERED: FENTANYL CITRATE/PF 50MCG/ML 2ML VIAL ONE (13:44)
[2020-12-31] MEDS ORDERED: MIDAZOLAM HCL 5 MG/5 ML VIAL ONE ×2 (13:44→13:46)
[2020-12-31] MEDS ORDERED: DIAZEPAM 5 MG/ML 2ML CPJ ONE (13:46)
[2020-12-31] MEDS ORDERED: MIDAZOLAM HCL 5 MG/5 ML VIAL IV PRN (13:46)
[2020-12-31] MEDS: LIPASE/PROTEASE/AMYLASE 5,000/17,000/24,000 UNITS CAP DR PO SCH (18:54)
[2020-12-31] MEDS ORDERED: HYDROCODONE/ACETAMINOPHEN 5/325MG TABLET PO PRN (21:15)
[2020-12-31] MEDS: ZOLPIDEM TARTRATE 5MG TABLET PO PRN (23:41)
[2021-01-01] VITALS (13 sets, daily range): BP systolic 102–152; BP diastolic 55–86
[2021-01-01] MEDS: LOPERAMIDE HCL 2MG CAPSULE PO PRN (03:09)
[2021-01-01] MEDS: DICYCLOMINE HCL 20MG TABLET PO SCH ×3 (05:38→17:41)
[2021-01-01] MEDS: BLOOD SUGAR DIAGNOSTIC STRIP TEST SCH ×4 (07:30→21:12)
[2021-01-01] MEDS: LIPASE/PROTEASE/AMYLASE 5,000/17,000/24,000 UNITS CAP DR PO SCH ×3 (08:34→17:41)
[2021-01-01] MEDS: POTASSIUM CHLORIDE 20MEQ/PACKET PO SCH (08:34)
[2021-01-01] MEDS: PREGABALIN 75MG CAPSULE PO SCH ×2 (08:34→17:41)
[2021-01-01] MEDS: INSULIN LISPRO 100 UNITS/ML SUBCUT SCH ×4 (08:36→21:17)
[2021-01-01] MEDS: INSULIN GLARGINE UD 100 UNITS/ML SYR SUBCUT SCH ×2 (10:22→21:17)
[2021-01-01] MEDS ORDERED: LIPASE/PROTEASE/AMYLASE 4,200/14,200/24,600 UNITS CAP DR PO SCH (13:00)
[2021-01-02] VITALS (7 sets, daily range): BP systolic 89–114; BP diastolic 53–89
[2021-01-02] MEDS: DICYCLOMINE HCL 20MG TABLET PO SCH ×4 (00:17→17:46)
[2021-01-02] MEDS: ZOLPIDEM TARTRATE 5MG TABLET PO PRN (00:17)
[2021-01-02] MEDS: BLOOD SUGAR DIAGNOSTIC STRIP TEST SCH ×4 (07:53→21:00)
[2021-01-02] MEDS: INSULIN LISPRO 100 UNITS/ML SUBCUT SCH ×4 (08:29→21:00)
[2021-01-02] MEDS: PREGABALIN 75MG CAPSULE PO SCH ×2 (08:29→17:46)
[2021-01-02] MEDS: POTASSIUM CHLORIDE 20MEQ/PACKET PO SCH (08:29)
[2021-01-02] MEDS: LIPASE/PROTEASE/AMYLASE 5,000/17,000/24,000 UNITS CAP DR PO SCH ×3 (08:29→17:53)
[2021-01-02] MEDS: LOPERAMIDE HCL 2MG CAPSULE PO PRN (10:21)
[2021-01-02] MEDS: INSULIN GLARGINE UD 100 UNITS/ML SYR SUBCUT SCH (10:21)
[2021-01-02] MEDS ORDERED: ONDANSETRON HCL 4MG/2ML INJ IV PRN (10:45)
== END 2021-01-02 22:40 | DRG 254 ==
LOC: ER 21:07 → CVICU 12-22 02:09 → EDBEDREQTM 12-22 02:25 → EDBEDREQ 12-22 02:25 → ENRESERV 12-22 03:26 → 5EST 12-25 11:00
PROVIDERS: ADMIT Internal Medicine; ATTEND Internal Medicine
PROC: 05HY33Z Insertion of Infusion Device into Upper Vein, Percutaneous Approach (ICD-10-PCS; 2020-12-24)
PROC: B54NZZA Ultrasonography of Left Upper Extremity Veins, Guidance (ICD-10-PCS; 2020-12-24)
PROC: 0DJD8ZZ Inspection of Lower Intestinal Tract, Via Natural or Artificial Opening Endoscopic (ICD-10-PCS; principal; 2020-12-29)
PROC: 30233N1 Transfusion of Nonautologous Red Blood Cells into Peripheral Vein, Percutaneous Approach (ICD-10-PCS; 2020-12-29)
PROC: 0DBE8ZX Excision of Large Intestine, Via Natural or Artificial Opening Endoscopic, Diagnostic (ICD-10-PCS; 2020-12-31)
DX: K58.0 Irritable bowel syndrome with diarrhea (principal); E87.8 Other disorders of electrolyte and fluid balance, not elsewhere classified; E11.69 Type 2 diabetes mellitus with other specified complication; R64 Cachexia; E44.1 Mild protein-calorie malnutrition; M86.8X6 Other osteomyelitis, lower leg; E87.6 Hypokalemia; I48.91 Unspecified atrial fibrillation; Z20.822 Contact with and (suspected) exposure to COVID-19; D64.9 Anemia, unspecified; L89.890 Pressure ulcer of other site, unstageable; N39.0 Urinary tract infection, site not specified; N20.0 Calculus of kidney; F12.90 Cannabis use, unspecified, uncomplicated; D18.03 Hemangioma of intra-abdominal structures; Z86.73 Personal history of transient ischemic attack (TIA), and cerebral infarction without residual deficits; Z89.512 Acquired absence of left leg below knee; Z79.899 Other long term (current) drug therapy; Z68.1 Body mass index [BMI] 19.9 or less, adult
CPT/HCPCS: 36415; 36600; 71045; 71260; 74176; 74177; 74183; 76937; 80048; 80053; 80076; 80305; 80320; 81003; 82040; 82105; 82270; 82375; 82378; 82784; 82805; 82962; 83010; 83036; 83605; 83615; 83735; 83883; 84132; 84134; 84145; 84153; 84484; 85025; 86256; 86301; 86304; 86334; 86671; 86705; 86709; 86803; 86850; 86900; 86920; 87015; 87045; 87077; 87177; 87186; 87209; 87340; 87426; 87427; 87449; 87493; 88305; 89055; 93005; 93970; 97110; 97162; 97166; 97530; 97535; 99291; A6261; A9577; C1725; J0696; J1815; J2250; J2270; J2405; J3010; J3475; J3480; J3490; J7030; J7060; J8597; P9016; Q9967; G0103; G0480

== ENCOUNTER 2021-11-16 18:02 | Emergency (ER) | payer MEDICAID, OTHER ==
[~2021-11-16] VITALS: Ht 180.3 cm; Wt 54.0 kg
[~2021-11-16 18:02] MED LIST changes: -DICY20TA11 PO; +DICY20TA2 PO
[2021-11-16 21:43] LABS: BASOPHILS % 0.5 % (0.0-2.0); EOSINOPHILS % 0.6 % (0.0-5.0); HEMATOCRIT. 34.6 % (42.0-52.0); HEMOGLOBIN. 11.8 g/dL (14.0-18.0); LYMPHOCYTES % 30.8 % (20.0-50.0); MEAN CORPUSCULAR HEMOGLOBIN 31.1 pg (28.0-32.0); MEAN CORPUSCULAR VOLUME 91.2 fL (80.0-94.0); MEAN PLATELET VOLUME 7.6 fl (7.4-10.4); MONOCYTES % 4.6 % (2.0-8.0); NEUTROPHILS % 63.5 % (40.0-76.0); PLATELET 200 x1000/uL (130-400); RED BLOOD CELL COUNT 3.79 mill/uL (4.7-6.1)
[2021-11-16 22:12] LABS: CHLORIDE 107 mEq/L (98-107)
[2021-11-17] MEDS ORDERED: POTASSIUM CHLORIDE 20MEQ TABLET SR PO ONE (04:00)
[2021-11-17] MEDS ORDERED: SODIUM CHLORIDE 0.9% 1,000 ML IV ONE ×2 (04:00)
[2021-11-17] MEDS ORDERED: POTASSIUM CHLORIDE 20MEQ TABLET SR PO NR (08:15)
[2021-11-17 09:23] VITALS: BP 122/68
== END 2021-11-17 11:12 | disposition short-term general hospital (02) ==
LOC: ER 18:02
DX: N17.9 Acute kidney failure, unspecified (principal); E86.0 Dehydration; E11.9 Type 2 diabetes mellitus without complications; Z20.822 Contact with and (suspected) exposure to COVID-19; Z79.899 Other long term (current) drug therapy
CPT/HCPCS: 36415; 71045; 74176; 80053; 83690; 83735; 83880; 85025; 87426; 93005; 96360; 99285; J7030